=== PATIENT | male | born 1975 | race Caucasian/White ===

== ENCOUNTER 2024-12-05 15:41 | Inpatient (IN) | payer OTHER, SELFPAY ==
[2024-12-05] VITALS (13 sets, daily range): BP systolic 164–191; BP diastolic 93–110; BMI 29.4; BMI 28.5
[2024-12-05 10:11] LABS: % Basophils 0.6 % (0-2); % Eosinophils 19.8 % (0-6); % Immature Granulocytes 0.2 % (0-0.5); % Lymphocytes 10.8 % (20.5-51.1); % Monocytes 5.6 % (1.7-9.3); Absolute Basophils 0.1 10^3/uL (0-0.2); Absolute Eosinophils 1.8 10^3/uL (0-0.7); Absolute Monocytes 0.5 10^3/uL (0.1-0.6); Absolute Neutrophils 5.6 10^3/uL (1.4-6.5); Hemoglobin 9.7 g/dL (13.0-18.0); Mean Corp Hgb Conc. 32.3 g/dL (33.0-37.0); Mean Corpuscular Hgb 29.9 pg (27.0-31.0); Mean Corpuscular Volume 92.6 fL (80.0-94.0); Mean Platelet Volume 9.4 fL (7.4-10.4); Nucleated Red Blood Cells % 0 % (-); Platelet Count 309 10^3/uL (130-400); Red Blood Cell Count 3.24 10^6/uL (4.70-6.10); Red Cell Dist. Width 16.1 % (11.5-14.5); White Blood Cell Count 8.9 10^3/uL (4.8-10.8)
[2024-12-05 10:30] LABS: ALT (SGPT) 23 U/L (0-50); AST (SGOT) 26 U/L (17-59); Albumin 3.5 g/dl (3.5-5.0); Alkaline Phosphatase 85 U/L (38-126); Blood Urea Nitrogen 54 mg/dl (9-20); Calcium 8.7 mg/dl (8.4-10.2); Carbon Dioxide 28 mmol/L (22-30); Chloride 96 mmol/L (98-107); Glucose 121 mg/dl (70-99); Potassium 4.4 mmol/L (3.5-5.1); Sodium 139 mmol/L (135-145); Total Bilirubin 0.4 mg/dl (0.2-1.3); Total Protein 6.7 g/dl (6.3-8.2); eGFR 5.18
[2024-12-05 10:39] LABS: COVID-19 Antigen Negative (Negative)
[2024-12-05 11:53] LABS: NT-proBNP > 27000 pg/ml; Troponin I 0.036 ng/ml
--- NOTE | 2024-12-05 13:50 | ED.GENMED ---
History of Present Illness
<Anabella Love MD - Last Filed: 12/05/24 13:52>
General
Chief Complaint: Breathing Problem
Time Seen by Provider: 12/05/24 10:44
<Tahir Lizarraga PA-C - Last Filed: 12/05/24 14:00>
General
Source: patient
Exam Limitations: none
History of Present Illness
History of Present Illness:
49-year-old male Tuesday dialysis patient presents with increased shortness of breath worsening over the past 2 weeks. He believes he has a history of heart failure. Is on Bumex. He stopped taking this 2 days ago. The shortness of breath
preceded this. He notes swelling in his legs. He is due for his next dialysis session tomorrow. He has a history of IgA nephropathy requiring renal transplant. He states to me that his renal transplant failed last year. He denies chest pain.
No fevers. No significant cough. No other complaints at this time
Past History
<Anabella Love MD - Last Filed: 12/05/24 13:52>
Past History
ED Past Medical History: Asthma, GERD and Other (G-6PD def )
ED Past Surgical History: Orthopedic ('Drill procedure' left UE. Left achilles surgery) and Other ( Right Kidney transplant)
Social History
Tobacco: Non-smoker
Alcohol: Occasional
Drug: None
Personal: Single
Living: alone
Phy Exam
<Tahir Lizarraga PA-C - Last Filed: 12/05/24 14:00>
Physical Exam
Physical Exam:
General: Well-developed male with slight increased work of breathing HEENT: Normocephalic atraumatic neck is supple
Heart: Regular rate and rhythm
Lungs: Clear
Abdomen is soft nontender nondistended
Extremities: Pitting edema bilateral lower extremity
Skin: Warm no rash
Scores
<Tahir Lizarraga PA-C - Last Filed: 12/05/24 14:00>
Heart Failure Risk
Heart Failure Risk Score: Not Applicable
Course
<Anabella Love MD - Last Filed: 12/05/24 13:52>
Orders/Labs/Results
Orders:
Orders
12/05/24 09:47
Electrocardiogram (*1) Urgent
Reason for Study: Shortness of Breath
EKG- Treatment ONCE
12/05/24 09:57
Comprehensive Metabolic Panel Urgent
12/05/24 09:58
COVID-19 Antigen Urgent
Source: Nasal Swab
Complete Blood Count/With Diff Urgent
Influenza A+B Rapid Molecular Urgent
SHELDON Source: Nasal Swab
Specimen Description:
12/05/24 10:55
CR Chest - 2 Views Urgent
Comment:
Reason For Exam: sob
12/05/24 11:10
NT-proBNP Urgent
Troponin I Urgent
Abnormal Lab Results
12/05/24 12/05/24 12/05/24
09:57 09:58 11:10
RBC 3.24 L 10^6/uL
(4.70-6.10)
Hgb 9.7 L g/dL
(13.0-18.0)
Hct 30.0 L %
(39.0-52.0)
MCHC 32.3 L g/dL
(33.0-37.0)
RDW 16.1 H %
(11.5-14.5)
Absolute Lymphs (auto) 1.0 L 10^3/uL
(1.2-3.4)
Absolute Eos (auto) 1.8 H 10^3/uL
(0-0.7)
Lymphocytes % 10.8 L %
(20.5-51.1)
Eosinophils % 19.8 H %
(0-6)
Chloride 96 L mmol/L
(98-107)
BUN 54 H mg/dl
(9-20)
Creatinine 10.9 H* mg/dL
(0.7-1.3)
Glucose 121 H mg/dl
(70-99)
Troponin I 0.036 H* ng/ml
12/05/24 09:58
12/05/24 09:57
Vital Signs
Initial and Last Documented VS:
Initial Vital Signs
Temp Pulse Resp BP Pulse Ox
97.9 F 78 18 177/110 93
12/05/24 09:44 12/05/24 09:44 12/05/24 09:44 12/05/24 09:44 12/05/24 09:44
Last Documented Vital Signs
Temp Pulse Resp BP Pulse Ox
97.9 F 73 23 179/107 94
12/05/24 09:44 12/05/24 13:45 12/05/24 13:45 12/05/24 13:00 12/05/24 13:45
Travonlt;Tahir Lizararga PA-C - Last Filed: 12/05/24 14:00>
Orders/Labs/Results
Orders:
Orders
12/05/24 09:47
Electrocardiogram (*1) Urgent
Reason for Study: Shortness of Breath
EKG- Treatment ONCE
12/05/24 09:57
Comprehensive Metabolic Panel Urgent
12/05/24 09:58
COVID-19 Antigen Urgent
Source: Nasal Swab
Complete Blood Count/With Diff Urgent
Influenza A+B Rapid Molecular Urgent
HSELDON Source: Nasal Swab
Specimen Description:
12/05/24 10:55
CR Chest - 2 Views Urgent
Comment:
Reason For Exam: sob
12/05/24 11:10
NT-proBNP Urgent
Troponin I Urgent
Abnormal Lab Results
12/05/24 12/05/24 12/05/24
09:57 09:58 11:10
RBC 3.24 L 10^6/uL
(4.70-6.10)
Hgb 9.7 L g/dL
(13.0-18.0)
Hct 30.0 L %
(39.0-52.0)
MCHC 32.3 L g/dL
(33.0-37.0)
RDW 16.1 H %
(11.5-14.5)
Absolute Lymphs (auto) 1.0 L 10^3/uL
(1.2-3.4)
Absolute Eos (auto) 1.8 H 10^3/uL
(0-0.7)
Lymphocytes % 10.8 L %
(20.5-51.1)
Eosinophils % 19.8 H %
(0-6)
Chloride 96 L mmol/L
(98-107)
BUN 54 H mg/dl
(9-20)
Creatinine 10.9 H* mg/dL
(0.7-1.3)
Glucose 121 H mg/dl
(70-99)
Troponin I 0.036 H* ng/ml
12/05/24 09:58
12/05/24 09:57
Vital Signs
Initial and Last Documented VS:
Initial Vital Signs
Temp Pulse Resp BP Pulse Ox
97.9 F 78 18 177/110 93
12/05/24 09:44 12/05/24 09:44 12/05/24 09:44 12/05/24 09:44 12/05/24 09:44
Last Documented Vital Signs
Temp Pulse Resp BP Pulse Ox
97.9 F 73 23 179/107 94
12/05/24 09:44 12/05/24 13:45 12/05/24 13:45 12/05/24 13:00 12/05/24 13:45
<Tahir Lizarraga PA-C - Last Filed: 12/05/24 14:00>
MDM/Problems Addressed
Differential Diagnosis Includes:
Shortness of breath. Consider volume overload versus CHF versus pneumonia.
Patient does look volume overloaded. BNP greater than 27,000. Chest x-ray shows new cardiomegaly. Patient did drop to 88% while here and is requiring 2 L of oxygen. Suspect possible underlying CHF. Discussed with emergency room attending who
saw the patient as well. Will admit to hospital
<Tahir Lizarraga PA-C - Last Filed: 12/05/24 14:00>
*Critical Care Note
Total Time (30-74mins, 75-104mins- exclusive of procedures): Not Applicable
ED Attending Note
<Anabella Love MD - Last Filed: 12/05/24 13:52>
ED Attending Note
Patient seen and examined by attending physician: Yes
I performed the substantive portion of visit, reviewed & personally made and approve the management plan that is documented in note by myself or GRANT.: Yes
ED Attending Note:
Patient appears nontoxic but is tachypneic at rest. Patient reports his shortness of breath is much different than baseline. He denies chest pain, including pleuritic chest pain and cough. Given patient's comorbidities and breathing feeling so
different than his baseline, I feel it is important for him to be admitted for at least a cardiac workup and echo
-
Portions of this chart may have been created with voice recognition software.� Occasional wrong word or��sound alike� substitutions may have occurred due to the inherent limitations of voice recognition software.
Discharge Plan
Departure
Patient Disposition: Admit
Date of Disposition: 12/05/24
Time of Disposition: 13:59
Presentation/result/management discussed w/ accepting MD/DO: Hospitalist
Discharge Problem:
Hypoxia
Prescriptions:
No Action
prednisone 5 mg Tablet
5 mg PO DAILY
famotidine [Pepcid] 20 mg Tablet
20 mg PO DAILY
nifedipine [Nifedical XL] 60 mg Tablet Extended Release 24hr
60 mg PO BID
tamsulosin [Flomax] 0.4 mg Capsule
0.8 mg PO HS
telmisartan 80 mg Tablet
80 mg PO DAILY
bumetanide [Bumex] 1 mg Tablet
1 mg PO MOTUWEFRSA
cinacalcet 90 mg Tablet
90 mg PO MOWEFR
sevelamer carbonate 800 mg Tablet
1,600 mg PO TID
Envarsus XR 1 mg Tablet Extended Release 24 Hr
6 mg PO DAILY
Repatha SureClick 140 mg/mL Pen Injector
140 mg SC MONTHLY
Referrals:
Tena Boyer CRNP [Family Provider] -
Interventions
Interventions:
*Risk Screen - Suicide Last Done: 12/05/24 09:44
*General Assessment Last Done: 12/05/24 09:44
*Neglect/Abuse Screening Last Done: 12/05/24 09:44
ED- Fall Risk Assessment Last Done: 12/05/24 10:50
*ED COVID-19 Vaccine History Last Done: 12/05/24 09:44
ED- Cardiac Assessment Last Done: 12/05/24 10:50
ED- Pulmonary Assessment Last Done: 12/05/24 10:50
Discharge Date and Time
Print Language: TURKISH
--- NOTE | 2024-12-05 14:03 | HPS.HSE ---
Family Physician
-
Family Physician: Tena Boyer
Chief Complaint
-
Short of breath
History of Present Illness
49-year-old male Tuesday dialysis, type 2 diabetes, anemia, neurogenic bladder, hyperlipidemia, heart murmur, neuropathy patient presents with increased shortness of breath worsening over the past 2 weeks. Patient stated short of breath
worse with exertion patient denied orthopnea.patient complained of worsening lower extremities edema. Patient stated runny nose, congestion, cough. Patient denied headache, dizzy, syncope patient denied fever, chills, chest pain.patient denied
abdominal pain, nausea, vomiting or diarrhea. Patient denied dysuria hematuria. Patient stated he did not take Bumex for past few days. He was waking up at night with dry mouth and lips.
He was noted to have elevated BNP, chest x-ray with mild cardiomegaly. Patient received a dose of Bumex in ER. Admitting for further management
Medical History
Past Medical History
Past Medical History: Reports Other
Additional Past Medical History:
Renal transplant recipient
End-stage renal disease
Type 2 diabetes
Anemia
Neurogenic bladder
Hyperlipidemia
Heart murmur
IgG4 related disease
Polyneuropathy
Asthma
Past Surgical History: Reports Other
Additional Past Surgical History:
Kidney transplant
Social History
Tobacco: Non-smoker
Alcohol: Occasional
Drug: None
Personal: Single
Family History
Family History: Not pertinent
Allergies / Home Medications
Allergies reflects when Allergies were last updated in [facility].
Home Medications with original date entered in [facility]
Allergy/Medication List:
Allergies
Allergy/AdvReac Type Severity Reaction Status Date / Time
dapsone Allergy Hives Verified 12/05/24 09:47
sulfamethoxazole Allergy Hives Verified 12/05/24 09:47
[From Bactrim]
trimethoprim [From Bactrim] Allergy Hives Verified 12/05/24 09:47
adhesive and possible latex Allergy Rash Uncoded 12/05/24 09:47
Home Medications
bumetanide 1 mg tablet 1 mg PO MOTUWEFRSA 12/05/24
cinacalcet 90 mg tablet 90 mg PO MOWEFR 12/05/24
evolocumab 140 mg/mL subcutaneous pen injector (Repatha SureClick) 140 mg SC MONTHLY 12/05/24
famotidine 20 mg tablet (Pepcid) 20 mg PO DAILY 12/05/24
nifedipine 60 mg tablet,extended release 24 hr 60 mg PO BID 12/05/24
prednisone 5 mg tablet 5 mg PO DAILY 12/05/24
sevelamer carbonate 800 mg tablet 1,600 mg PO TID 12/05/24
tacrolimus 1 mg tablet,extended release 24 hr (Envarsus XR) 6 mg PO DAILY 12/05/24
tamsulosin 0.4 mg capsule (Flomax) 0.8 mg PO HS 12/05/24
telmisartan 80 mg tablet 80 mg PO DAILY 12/05/24
Review of Systems
-
Constitutional: Reports No Symptoms
EENT: Reports No Symptoms
Respiratory: Reports Cough and Trouble Breathing
Cardiac: Reports No Symptoms
Abdomen/GI: Reports No Symptoms
: Reports No Symptoms
Musculoskeletal: Reports No Symptoms
Skin: Reports No Symptoms
Neurological: Reports No Symptoms
Endocrine: Reports No Symptoms
Hematologic/Lymphatic: Reports No Symptoms
Psych: Reports No Symptoms
Physical Exam
Vital Signs
Vital Signs
Temp Pulse Resp BP Pulse Ox
97.9 F 73 23 179/107 94
12/05/24 09:44 12/05/24 13:45 12/05/24 13:45 12/05/24 13:00 12/05/24 13:45
Physical Exam
General: Well Developed, Well Nourished and No Apparent Distress
HEENT: NormoCephalic, Moist mucous membranes and Atraumatic
Respiratory: Clear
Cardiac: S1/S2 and Regular Rhythm; No Murmur or Rub
GI: Soft, Non Tender, Non Distended and Normal Bowel Sounds; No Organomegaly
Rectal: Deferred by Provider
Musculoskeletal: No Clubbing, No Cyanosis and Other (Bilateral lower extremities)
Skin: No Rash
Neuro: AO x 3 and Nonfocal/grossly intact
Psych: Calm
Laboratory Results
-
12/05/24 09:58
12/05/24 09:57
Laboratory Results
Total Bilirubin 0.4 mg/dl (0.2-1.3) 12/05/24 09:57
AST 26 U/L (17-59) 12/05/24 09:57
ALT 23 U/L (0-50) 12/05/24 09:57
Alkaline Phosphatase 85 U/L (38-126) 12/05/24 09:57
Troponin I 0.036 ng/ml H* 12/05/24 11:10
Data Reviewed
-
Lab Data: Labs Reviewed by me
Impression/Plan
-
# Short of breath/acute hypoxic respiratory failure likely CHF exacerbation
-Patient requiring 2 L of oxygen
-Continue supplemental oxygen to keep sat greater than 92, wean as tolerated
-BNP greater than 27 000
-Influenza AMB, COVID-negative
-Chest x-ray with impression of mild cardiomegaly.
-IV Bumex continued
-obtain ECHO
-cardiology consulted
# End-stage renal dialysis
#renal transplant recipient
-Patient is on dialysis Tuesday and
-Nephrology consulted
-patient straight cath three times a week.
# Anemia of chronic disease
-Hemoglobin stable at 9.7
-No active bleeding
-Continue to monitor
# Elevated Trop likely demand ischemia secondary to CHF/end-stage renal disease
-Patient denied any chest pain
-EKG normal sinus rhythm, nonspecific ST-T wave normality, prolonged QT
-continue to trend trop
#IGA nephropathy requiring transplant, failed last year
-continue cinacalcet, prednisone, sevelamer, Tacrolimus continued
#essential HTN
nifedipine , telmisartan continued
#GERD
-PPI continued
#DVT prophylaxis
-heparin sq
#CODE status
-full code
--- NOTE | 2024-12-05 14:39 | W.PN.UPDATE ---
Update Note
Progress Note Update
This is an addendum to the H&P written by Yolanda Waite on 12/05/2024. Patient seen examined independently with [employer].
49-year-old male past medical history of ESRD on hemodialysis on , Tuesday, IgA nephropathy requiring renal transplant which failed last year followed at [place], [facility], presenting with shortness of breath worsening over the past 2 weeks.
Stopped taking Bumex 2 days ago because he ran out of medication. Patient makes urine and straight catheterization 3 times a day.
Chest x-ray shows mild cardiomegaly.
Labs show cardiac BNP greater than 27,000.
Presentation consistent with volume overload from ESRD/CHF exacerbation secondary to Bumex noncompliance. 1 mg Bumex IV daily. Check echocardiogram. Cardiology consulted. Nephrology consulted. Bladder scan protocol.
Patient wants to establish care with [facility] physicians.
[2024-12-05] MEDS: BUMEX 1 MG IV (14:43)
--- NOTE | 2024-12-05 15:18 | W.CON.NEPH ---
Consultation
-
Date/Time Consultation Requested: 12/05/2024 2 PM
Date/Time Consultation Performed: 12/05/2024 3:20 PM
Requesting Provider: Dr. Park
Performing Provider: Dr. Hubbard
Reason for Consultation: ESRD
Medical History
-
Chief Complaint: Shortness of breath
History of Present Illness:
This is a 49-year-old gentleman who has end-stage renal disease on hemodialysis. Last year after failed renal transplant from [id number]. He is on nocturnal dialysis Tuesday nights and nights at [facility]. He states
that he has had no issues with dialysis in the past. He says in the last 2 weeks he has had progressive shortness of breath. He also developed upper respiratory symptoms as well. He has not had his Bumex in the last few days. He does have
urinary retention in the last 3 months time for which now straight catheterizes himself 3 times a day. His last straight catheterization was 3 PM on Tuesday afternoon, 24 hours ago. He does not recall any history of heart disease or heart
failure. He says that he typically does respond to Bumex but required straight catheterization to realize the urine output. His blood pressure has been controlled with a multidrug regimen though he admits that he has been taking as high as 120 mg
twice daily of nifedipine.
Past Medical History
ESRD
Left upper extremity AV fistula, DRIL, stent
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
Hypertension
Urinary retention/neurogenic bladder
Asthma
Achilles tendon repair
Social History
Tobacco: Non-Smoker
Alcohol: Occasional
Family History
Family History: Not Pertinent
Allergies / Home Medications
Allergy/AdvReac Type Severity Reaction Status Date / Time
dapsone Allergy Hives Verified 12/05/24 09:47
sulfamethoxazole Allergy Hives Verified 12/05/24 09:47
[From Bactrim]
trimethoprim [From Bactrim] Allergy Hives Verified 12/05/24 09:47
adhesive and possible latex Allergy Rash Uncoded 12/05/24 09:47
�Medication �Instructions �Recorded �Confirmed �Type
bumetanide 1 mg tablet 1 mg PO MOTUWEFRSA 12/05/24 12/05/24 History
cinacalcet 90 mg tablet 90 mg PO MOWEFR 12/05/24 12/05/24 History
evolocumab 140 mg/mL subcutaneous 140 mg SC MONTHLY 12/05/24 12/05/24 History
pen injector (Repatha SureClick)
famotidine 20 mg tablet (Pepcid) 20 mg PO DAILY 12/05/24 12/05/24 History
nifedipine 60 mg tablet,extended 60 mg PO BID 12/05/24 12/05/24 History
release 24 hr
prednisone 5 mg tablet 5 mg PO DAILY 12/05/24 12/05/24 History
sevelamer carbonate 800 mg tablet 1,600 mg PO TID 12/05/24 12/05/24 History
tacrolimus 1 mg tablet,extended 6 mg PO DAILY 12/05/24 12/05/24 History
release 24 hr (Envarsus XR)
tamsulosin 0.4 mg capsule (Flomax) 0.8 mg PO HS 12/05/24 12/05/24 History
telmisartan 80 mg tablet 80 mg PO DAILY 12/05/24 12/05/24 History
Review of Systems
-
Shortness of breath. No chest pain. Sinus complaints
All other systems: Negative unless noted
Physical Exam
Vital Signs
Vital Signs
Temp Pulse Resp BP Pulse Ox
97.9 F 74 21 189/98 96
12/05/24 09:44 12/05/24 14:45 12/05/24 14:45 12/05/24 14:00 12/05/24 14:45
Lab Results
WBC 8.9 10^3/uL (4.8-10.8) 12/05/24 09:58
RBC 3.24 10^6/uL (4.70-6.10) L 12/05/24 09:58
Hgb 9.7 g/dL (13.0-18.0) L 12/05/24 09:58
Hct 30.0 % (39.0-52.0) L 12/05/24 09:58
Plt Count 309 10^3/uL (130-400) 12/05/24 09:58
Sodium 139 mmol/L (135-145) 12/05/24 09:57
Potassium 4.4 mmol/L (3.5-5.1) 12/05/24 09:57
Chloride 96 mmol/L (98-107) L 12/05/24 09:57
Carbon Dioxide 28 mmol/L (22-30) 12/05/24 09:57
BUN 54 mg/dl (9-20) H 12/05/24 09:57
Creatinine 10.9 mg/dL (0.7-1.3) H* 12/05/24 09:57
eGFR 5.18 12/05/24 09:57
Glucose 121 mg/dl (70-99) H 12/05/24 09:57
Calcium 8.7 mg/dl (8.4-10.2) 12/05/24 09:57
Rob-S-Gevqolzrjur Pept > 69078 pg/ml 12/05/24 11:10
Albumin 3.5 g/dl (3.5-5.0) 12/05/24 09:57
Physical Exam
Patient is awake alert oriented and in no distress. Mood and affect were pleasant, insight and judgment were good. Pupils are equal round and reactive to light, extraocular movements are intact, sclera were anicteric. Hearing was normal, ears and
nose are intact. Oropharynx was clear. Neck was supple with trachea midline and no thyromegaly. Heart was regular rate and rhythm without rubs. Lower extremities with trace edema. Lungs were clear to auscultation bilaterally and with normal
excursion. Abdomen was soft, nontender, with normal active bowel sounds, and no hepatosplenomegaly. Skin was without rash and with normal turgor. Left upper extremity AV fistula was with good thrill and bruit, large pseudoaneurysm
Data Reviewed
-
Radiology: Image Personally Visualized and interpreted (Chest x-ray on 12/05/2024 by my reading shows no acute disease)
Medical Tests (Nuc Med, Echo etc): Image Personally Visualized and interpreted (EKG on 12/05/2024 by my reading shows normal sinus rhythm prolonged QT)
Labs: Labs Reviewed by me
Assessment/Plan
-
Assessment
Acute shortness of breath
ESRD on nocturnal dialysis Sundays
Anemia
IgG4 related disease
Failed kidney transplant
Acute heart failure
Hypertension
Urinary retention
Plan
Additional Bumex later today
straight catheterize 3 times daily
Plan for dialysis tomorrow
Cardiac evaluation, echocardiogram
Continue tacrolimus and prednisone, low-dose
--- NOTE | 2024-12-05 16:03 | CON.CAR ---
Addendum entered and electronically signed by Rafael Salvador MD 12/05/24 16:55:
-Start hydralazine 25 mg TID for management of uncontrolled hypertension.
Addendum entered and electronically signed by Rafael Salvador MD 12/05/24 16:54:
Patient seen and examined in collaboration with [employer]; agree with below.
-49-year-old male with failed prior renal transplant (at [place])/ESRD (on dialysis), urinary retention with self catheterizations 3 times daily), hypertension, dyslipidemia, and asthma admitted with shortness of breath.
-The patient ran out of Bumex a few days ago, but did not notify his Bung Driver.
-The patient does still make urine.
-Recommend IV Bumex as dosed per Nephrology.
-Will obtain an echocardiogram tomorrow (murmur on examination).
Original Note:
Consultation
Consultation Request
Date/Time Consultation Requested: 12/05/24 1436
Date/Time Consultation Performed: 12/05/24 1600
Requesting Provider: Yolanda Waite NP
Performing Provider: Yane POMPA for Dr. Bermeo
Reason for Consultation: CHF
Medical History
-
Chief Complaint: SOB
History of Present Illness:
49 y/o male with ESRD on HD (twice weekly), previous renal transplant that failed, hypertension, urinary retention (self cath 3 x day), asthma, dyslipidemia, and heart murmur (reason unknown) who is here for evaluation of SOB x 2 weeks, worse with
exertion. He did run out of Bumex a few days ago and has mild BLE LE edema. He is in no distress at the time of my assessment.
Past Medical History
Past Medical History: Asthma, HTN, Hypercholesterolemia, Renal Failure and Other (as above)
Social History
Tobacco: Non-Smoker
Family History
Family History: Reviewed & Not Pertinent
Allergies / Home Medications
Allergy/AdvReac Type Severity Reaction Status Date / Time
dapsone Allergy Hives Verified 12/05/24 09:47
sulfamethoxazole Allergy Hives Verified 12/05/24 09:47
[From Bactrim]
trimethoprim [From Bactrim] Allergy Hives Verified 12/05/24 09:47
adhesive and possible latex Allergy Rash Uncoded 12/05/24 09:47
�Medication �Instructions �Recorded �Confirmed �Type
bumetanide 1 mg tablet 1 mg PO MOTUWEFRSA 12/05/24 12/05/24 History
cinacalcet 90 mg tablet 90 mg PO MOWEFR 12/05/24 12/05/24 History
evolocumab 140 mg/mL subcutaneous 140 mg SC MONTHLY 12/05/24 12/05/24 History
pen injector (Repatha SureClick)
famotidine 20 mg tablet (Pepcid) 20 mg PO DAILY 12/05/24 12/05/24 History
nifedipine 60 mg tablet,extended 60 mg PO BID 12/05/24 12/05/24 History
release 24 hr
prednisone 5 mg tablet 5 mg PO DAILY 12/05/24 12/05/24 History
sevelamer carbonate 800 mg tablet 1,600 mg PO TID 12/05/24 12/05/24 History
tacrolimus 1 mg tablet,extended 6 mg PO DAILY 12/05/24 12/05/24 History
release 24 hr (Envarsus XR)
tamsulosin 0.4 mg capsule (Flomax) 0.8 mg PO HS 12/05/24 12/05/24 History
telmisartan 80 mg tablet 80 mg PO DAILY 12/05/24 12/05/24 History
Review of Systems
-
History Source: Patient
All other systems: Negative unless noted
Respiratory: Trouble Breathing
Musculoskeletal: Edema
Physical Exam
Vital Signs
Temp Pulse Resp BP Pulse Ox
97.9 F 76 19 167/107 96
12/05/24 09:44 12/05/24 15:15 12/05/24 15:15 12/05/24 15:00 12/05/24 15:45
Lab Results
12/05/24 09:58
12/05/24 09:57
Troponin I 0.036 ng/ml H* 12/05/24 11:10
Krg-E-Lukqzvofnru Pept > 70318 pg/ml 12/05/24 11:10
Physical Exam
General: Well Developed, Well Nourished and No Apparent Distress
HEENT: Normocephalic and Anicteric
Respiratory: Crackles (b/l bases)
Cardiac: Murmur (II/ systolic murmur)
Musculoskeletal: Edema (mild BLE edema)
Skin: Warm and Dry
Neuro: AO x 3
Psych: Calm
Impression / Plan
-
SOB, secondary to acute HF (type unknown), in setting of ESRD:
-gets Bumex as OP and has been off of it recently. Now ordered IV bumex, which requires intensive monitoring.
-To get HD tomorrow
-check echo, murmur noted
ESRD:
-hx renal transplant
-for HD tomorrow
-management per neprhology
HTN:
-not controlled
-continue CCB
-need to add alternate agent
Abnormal troponin:
-acute, non-ischemic myocardial injury in setting of abnormal renal function and volume overloaded
Data Reviewed
-
EKG: Tracing Personally Visualized and interpreted (NSR [address] and T abnormality)
Radiology: Report Reviewed by me (CXR: Mild cardiomegaly. New)
Medical Tests (Nuc Med, Echo etc): Other (echo is ordered)
Labs: Labs Reviewed by me
--- NOTE | 2024-12-05 17:48 | EDRN ---
Pt self-caths. Went to bathroom to use straight cath and did not measure output.
[2024-12-05] MEDS: BUMEX 2 MG IV (18:34)
[2024-12-05] MEDS: COREG 6.25 MG PO (19:56)
[2024-12-05] MEDS: HEPARIN 5000 UNITS SC (19:56)
[2024-12-05] MEDS: PROCARDIA XL (EXTENDED RELEASE) 60 MG PO (19:56)
[2024-12-05] MEDS: RENVELA PO (19:57)
[2024-12-05] MEDS: APRESOLINE 25 MG PO (22:23)
[2024-12-05] MEDS: FLOMAX 0.8 MG PO (22:23)
[2024-12-06 02:41] VITALS: BP 145/80
[2024-12-06 06:00] VITALS: BMI 28.7
[2024-12-06 06:15] LABS: Hematocrit 27.8 % (39.0-52.0); Hemoglobin 9.1 g/dL (13.0-18.0); Mean Corp Hgb Conc. 32.7 g/dL (33.0-37.0); Mean Corpuscular Hgb 30.1 pg (27.0-31.0); Mean Corpuscular Volume 92.1 fL (80.0-94.0); Mean Platelet Volume 9.5 fL (7.4-10.4); Platelet Count 307 10^3/uL (130-400); Red Blood Cell Count 3.02 10^6/uL (4.70-6.10); Red Cell Dist. Width 16.3 % (11.5-14.5); White Blood Cell Count 8.6 10^3/uL (4.8-10.8)
[2024-12-06 06:34] LABS: Troponin I 0.034 ng/ml
[2024-12-06 06:45] LABS: Blood Urea Nitrogen 61 mg/dl (9-20); Calcium 8.4 mg/dl (8.4-10.2); Carbon Dioxide 24 mmol/L (22-30); Chloride 97 mmol/L (98-107); Estimated Creatinine Clearance 7 ml/min; Glucose 87 mg/dl (70-99); HDL Cholesterol 32 mg/dl; LDL Cholesterol, Calculated 43 mg/dl; Magnesium 2.2 mg/dl (1.6-2.3); Sodium 137 mmol/L (135-145); Total Cholesterol 98 mg/dl (50-199); Triglyceride 116 mg/dl (10-149); Very Low Density Lipoprotein 23 mg/dl (0-30); eGFR 4.24
[2024-12-06 07:26] VITALS: BP 162/96
[2024-12-06] MEDS: APRESOLINE 25 MG PO ×3 (08:03→22:34)
[2024-12-06] MEDS: COREG 6.25 MG PO ×2 (08:03→19:44)
[2024-12-06] MEDS: DELTASONE 5 MG PO (08:03)
[2024-12-06] MEDS: PROCARDIA XL (EXTENDED RELEASE) 60 MG PO ×2 (08:03→19:44)
[2024-12-06] MEDS: RENVELA 1600 MG PO ×3 (08:03→17:29)
[2024-12-06] MEDS: COZAAR 100 MG PO (08:04)
[2024-12-06] MEDS: BUMEX 1 MG IV (08:04)
[2024-12-06] MEDS: HEPARIN 5000 UNITS SC ×2 (08:04→19:44)
[2024-12-06] MEDS: PEPCID 20 MG PO (08:04)
[2024-12-06 08:11] LABS: TSH Reflex To Free T4 3.32 uIU/ml (0.47-4.68)
[2024-12-06] MEDS: ENVARSUS XR 6 MG PO (09:10)
--- NOTE | 2024-12-06 09:54 | W.PN.CD ---
Today's Communication / Plan
-
HD today
HD and diuretic per nephrology
monitor BP a nd resp status post HD
Impression / Plan
-
SOB, secondary to acute HF (type unknown), in setting of ESRD:
-gets Bumex as OP and has been off of it recently. Now ordered IV bumex, which requires intensive monitoring.
-To get HD tomorrow
-check echo, murmur noted
ESRD:
-hx renal transplant
-for HD tomorrow
-management per neprhology
HTN:
-continue to monitor as addtionlaa volume removed. will likely have better control as he becomes euvolemic
- monitor after HD
Abnormal troponin:
-acute, non-ischemic myocardial injury in setting of abnormal renal function and volume overloaded
Physical Exam
Vital Signs/Labs
Vital Signs
Temp Pulse Resp BP Pulse Ox
98.0 F 74 18 162/96 96
12/06/24 07:26 12/06/24 08:04 12/06/24 07:26 12/06/24 08:04 12/06/24 07:26
12/05/24 12/06/24 12/07/24
06:59 06:59 06:59
Actual Weight 95.98 kg
12/06/24 06:00
12/06/24 06:00
Magnesium 2.2 mg/dl (1.6-2.3) 12/06/24 05:57
Triglycerides 116 mg/dl (10-149) 12/06/24 05:57
LDL Cholesterol, Calc 43 mg/dl 12/06/24 05:57
VLDL Cholesterol, Calc 23 mg/dl (0-30) 12/06/24 05:57
HDL Cholesterol 32 mg/dl 12/06/24 05:57
12/05/24
11:10
Nqq-N-Dklhxbznbul Pept > [id number]
LAB Results
12/05/24 12/05/24 12/06/24
11:10 17:35 05:57
Troponin I 0.036 H* Cancelled 0.034
Physical Exam
Constitutional: No acute distress
Cardiovascular: Rhythm & rate is regular
Respiratory: Wheeze Absent and Rhonchi Absent
GI: Soft
Neuro/Psych: Alert
Data Reviewed
-
Date of Service: December 06, 2024
Medical Decision Making: Reviewed Test Results
Echo: Report Reviewed by me
Medical Tests (PFT, Pathology etc): Report Reviewed by me
Labs: Labs Reviewed by me
[2024-12-06 10:59] VITALS: BP 151/97
[2024-12-06 12:44] VITALS: BMI 28.7
[2024-12-06] MEDS: RETACRIT 4000 UNITS IV (13:29)
--- NOTE | 2024-12-06 14:04 | W.PN.NEPH.HD ---
Assessment
-
Seen on HD. still on suppO2. VSS, access ok
possible UF tomorrow based on O2 req
Progress Note - Hemodialysis
-
Date of Service: December 06, 2024
Duration: 4 hours
Potassium Bath: 2
Calcium Bath: 2.5
Opti-Dialyzer: 160
Ultrafiltration: Other (4kg)
Blood Flow: 400
Dialysate Flow: 600
Heparin: 0
EPO: 4000 units
--- NOTE | 2024-12-06 14:58 | W.PN.HOSP.TC ---
Today's Communication/Plan
-
See plan
Assessment / Plan
Assessment / Plan
Impression:
Presentation with acute shortness of breath
Acute hypoxic respiratory failure.
Acute CHF exacerbation unknown type.
Non-SD troponin elevation
Volume overload.
End-stage renal disease on nocturnal dialysis Sundays and .
Anemia of chronic disease.
Failed kidney transplant.
IgG4 nephropathy.
Hypertension.
Chronic urine retention requiring self-catheterization
Plan:
IV diuresis with Bumex
Volume management with HD
Echocardiogram
Continue current antihypertensive regimen including nifedipine, losartan with addition of Coreg and hydralazine
Reassess hemodynamics post HD and with IV diuresis
Continue preadmission immunosuppressive regimen with prednisone and tacrolimus
Continue self-catheterization
Continue Flomax
Anticipated Discharge: 24 - 48 hours
Subjective/Interval History
-
Date of Service: December 06, 2024
Objective Data
-
Labs:
Laboratory Results
12/06/24
05:57
WBC 8.6
Hgb 9.1 L
Hct 27.8 L
Plt Count 307
Sodium 137
Potassium 5.0
Chloride 97 L
Carbon Dioxide 24
BUN 61 H
Creatinine 12.9 H*
Glucose 87
Calcium 8.4
Vital Signs:
Vital Signs
Temp Pulse Resp BP Pulse Ox
97.7 F 72 17 151/97 97
12/06/24 10:59 12/06/24 10:59 12/06/24 10:59 12/06/24 10:59 12/06/24 10:59
I&O
12/05/24 12/06/24 12/07/24
06:59 06:59 06:59
Intake Total 480 / 480
Balance 480 / 480
Physical Exam
-
General: Well Developed and No Apparent Distress
HEENT: Normocephalic, Atraumatic and Moist Mucous Membranes
Respiratory: Clear to Auscultation
Cardiac: Regular Rhythm and S1/S2; Negative Murmur, Rub or Gallop
GI: Soft, Nontender, Nondistended and Normal Bowel Sounds; Negative Organomegaly
Rectal: Deferred by Provider
Musculoskeletal: No Clubbing, No Cyanosis and No Edema
Skin: Negative Rash
Neuro: Nonfocal/Grossly Intact
[2024-12-06 15:25] VITALS: BP 153/83
[2024-12-06 19:58] VITALS: BP 155/88
[2024-12-06 20:40] LABS: Hepatitis B Surface Antigen Negative (Negative)
[2024-12-06] MEDS: FLOMAX 0.8 MG PO (22:34)
[2024-12-06 22:38] VITALS: BP 144/85
[2024-12-07 03:21] VITALS: BP 140/73
[2024-12-07 06:00] VITALS: BMI 27.4
[2024-12-07] MEDS: ENVARSUS XR 6 MG PO (08:40)
[2024-12-07] MEDS: RENVELA 1600 MG PO ×3 (08:40→17:02)
[2024-12-07] MEDS: PROCARDIA XL (EXTENDED RELEASE) 60 MG PO (08:40)
[2024-12-07 08:41] VITALS: BP 165/103
[2024-12-07] MEDS: DELTASONE 5 MG PO (08:41)
[2024-12-07] MEDS: HEPARIN 5000 UNITS SC (08:41)
[2024-12-07] MEDS: BUMEX 1 MG IV (08:43)
[2024-12-07] MEDS: COZAAR 100 MG PO (08:45)
[2024-12-07] MEDS: COREG 6.25 MG PO (08:45)
[2024-12-07] MEDS: SENSIPAR 90 MG PO (08:48)
[2024-12-07] MEDS: APRESOLINE 25 MG PO (08:57)
--- NOTE | 2024-12-07 09:07 | W.PN.CD ---
Today's Communication / Plan
-
-Patient received hemodialysis yesterday; will receive 2 hours again today.
-Recommend Bumex 1 mg PO daily at home, but will ultimately defer to Nephrology for the recommendations.
-Will increase hydralazine to 50 mg TID.
-Continue current doses of carvedilol, nifedipine, and losartan.
-Outpatient follow-up with Cardiology.
Impression / Plan
-
Likely acute on chronic HFpEF:
-Patient has end-stage renal disease on dialysis and moderate to severe MR.
-Echocardiogram yesterday revealed an LVEF of 60-65% with moderate to severe mitral regurgitation and mild to moderate tricuspid regurgitation with an estimated PAP of 60-65 mmHg.
-Patient received hemodialysis yesterday; will receive 2 hours again today.
-Recommend Bumex 1 mg PO daily at home, but will ultimately defer to Nephrology for the recommendations.
ESRD:
-S/p renal transplant, failed.
-Patient received hemodialysis yesterday; will receive 2 hours again today.
-Continue management as per Nephrology.
HTN:
-Improved.
-Will increase hydralazine to 50 mg TID.
-Continue current doses of carvedilol, nifedipine, and losartan.
Abnormal troponin:
-Acute non-ischemic myocardial injury in setting of CKD and volume overloaded.
Physical Exam
Vital Signs/Labs
Vital Signs
Temp Pulse Resp BP Pulse Ox
97.6 F 75 12 165/103 96
12/07/24 08:41 12/07/24 08:43 12/07/24 08:41 12/07/24 08:43 12/07/24 08:41
12/06/24 12/07/24 12/08/24
06:59 06:59 06:59
Actual Weight 95.98 kg 91.716 kg
Magnesium 2.2 mg/dl (1.6-2.3) 12/06/24 05:57
Triglycerides 116 mg/dl (10-149) 12/06/24 05:57
LDL Cholesterol, Calc 43 mg/dl 12/06/24 05:57
VLDL Cholesterol, Calc 23 mg/dl (0-30) 12/06/24 05:57
HDL Cholesterol 32 mg/dl 12/06/24 05:57
12/05/24
11:10
Hqv-N-Behfuoedadh Pept > 01892
LAB Results
12/05/24 12/05/24 12/06/24
11:10 17:35 05:57
Troponin I 0.036 H* Cancelled 0.034
Physical Exam
Constitutional: No acute distress and Comfortable
EENT: Anicteric
Cardiovascular: Rhythm & rate is regular, Pedal edema present (Trace), Systolic murmur present (4/6) and S1S2 is normal
Respiratory: Respiratory effort normal and Lungs clear to auscul.
GI: Soft and Non tender
Neuro/Psych: AO x 3
Other: Skin (Warm, dry, intact)
Data Reviewed
-
Date of Service: December 07, 2024
EKG: Tracing Personally Visualized and interpreted (Telemetry: Sinus rhythm)
Labs: Labs Reviewed by me
[2024-12-07 10:57] VITALS: BP 150/98
--- NOTE | 2024-12-07 11:23 | PN.CDI ---
CDI
- -
CDI:
Physician Documentation Request
Admit Date: 12/05/24 15:41
Dear Doctor Dina,
Please review the following and provide your response in the progress notes.
Clinical Indicators:
Documentation in the record on 11/26/24 includes the diagnosis of respiratory failure. The patient's respiratory clinical indicators were the following:
Pt. admitted with SOB, acute CHF and ESRD.
12/05 ER: 'patient presents with increased shortness of breath worsening over the past 2 weeks....General:...slight increased work of breathing...Patient did drop to 88% while here and is requiring 2 L of oxygen..'
12/05 H&P: 'Respiratory: Reports Cough and Trouble Breathing
Physical Exam-General: Well Developed, Well Nourished and No Apparent Distress'
Pt on 2LNC on 12/05-12/06; then RA
Recognized standard criteria for respiratory failure includes:
(Source: [facility] Hospitalist Sep 2013)
ABGs (1 or more)
�PO2 <60 or RA SpO2 <91%
�PcO2 >50 and pH <7.35
�pO2 decrease or pcO2 increase by 10 mmHg from baseline if known Symptoms:
�Tachypnea, SOB, dyspnea
�Pallor or cyanosis
�Anxiety or restlessness
�Use of accessory muscles
�Retractions (grunting in newborns)
�Unable to speak in complete sentences
Supplemental O2 requirement of 40% (5LPM) or more Intubation is not required
Based on the above information and the recognized standard for respiratory failure could you please verify this diagnoses is still accurate and reflective of the patient�s condition to ensure quality of the medical record.
Please clarify in the Progress Notes:
Respiratory failure is/was present and is a clinical diagnosis based on (please include this additional support in the medical record)
After study respiratory failure has been ruled out
Other
Use of terms such as suspected, likely, concern for, or probable (associated with a specific diagnosis that is being evaluated, monitored, or treated as if it exists) are acceptable and can be coded in the inpatient setting, when documented at the
time of discharge.
Thank you,
Polly Hermosillo RN, BSN
CDI Specialist
[place] [employer]
Please use your independent medical judgment in providing your response.
[2024-12-07 14:53] LABS: Hematocrit 30.3 % (39.0-52.0); Hemoglobin 10.1 g/dL (13.0-18.0); Mean Corp Hgb Conc. 33.3 g/dL (33.0-37.0); Mean Corpuscular Hgb 30.6 pg (27.0-31.0); Mean Corpuscular Volume 91.8 fL (80.0-94.0); Mean Platelet Volume 9.9 fL (7.4-10.4); Platelet Count 339 10^3/uL (130-400); Red Cell Dist. Width 16.2 % (11.5-14.5); White Blood Cell Count 9.1 10^3/uL (4.8-10.8)
[2024-12-07 15:03] VITALS: BP 134/77
[2024-12-07 15:12] LABS: Blood Urea Nitrogen 45 mg/dl (9-20); Calcium 8.3 mg/dl (8.4-10.2); Carbon Dioxide 26 mmol/L (22-30); Chloride 95 mmol/L (98-107); Estimated Creatinine Clearance 10 ml/min; Glucose 210 mg/dl (70-99); Sodium 135 mmol/L (135-145); eGFR 6.11
[2024-12-07] MEDS: RETACRIT 3000 UNITS IV (15:17)
[2024-12-07] MEDS: HEPARIN 500 UNITS IV (15:19)
--- NOTE | 2024-12-07 16:03 | W.PN.NEPH.PH ---
Today's Communication / Plan
-
see plan
Assessment/Plan
-
Assessment
Acute shortness of breath
ESRD on nocturnal dialysis Sundays
Anemia
IgG4 related disease
Failed kidney transplant
Acute heart failure
Hypertension
Urinary retention
Plan
wt is down, not sure what is his DW
planned for 2hr HD today however Venous needle non function 25min into HD
clot removed, pt with recent h/o stent placement 1m ago
check AVF US
recommend to try HD tomorrow but refusing to stay
if AVF patent could d/c and f/u at his unit
he is aware that fistula could be problem and wants to take risk
echo fine
Continue tacrolimus and prednisone, low-dose
need strict renal diet
reviewed with pt about possible changing to 3x week HD
-
-
Date of Service: December 07, 2024
CC / HPI / ROS
-
Chief Complaint:
ESRD
History of Present Illness:
wt is down 4kg
Bp stable
k normal
Review of Systems:
no cp or sob
feels fine
Labs
-
Labs:
WBC 9.1 10^3/uL (4.8-10.8) 12/07/24 14:39
RBC 3.30 10^6/uL (4.70-6.10) L 12/07/24 14:39
Hgb 10.1 g/dL (13.0-18.0) L 12/07/24 14:39
Hct 30.3 % (39.0-52.0) L 12/07/24 14:39
Plt Count 339 10^3/uL (130-400) 12/07/24 14:39
Sodium 135 mmol/L (135-145) 12/07/24 14:39
Potassium 5.0 mmol/L (3.5-5.1) 12/07/24 14:39
Chloride 95 mmol/L (98-107) L 12/07/24 14:39
Carbon Dioxide 26 mmol/L (22-30) 12/07/24 14:39
BUN 45 mg/dl (9-20) H 12/07/24 14:39
Creatinine 9.5 mg/dL (0.7-1.3) H* 12/07/24 14:39
eGFR 6.11 12/07/24 14:39
Glucose 210 mg/dl (70-99) H 12/07/24 14:39
Calcium 8.3 mg/dl (8.4-10.2) L 12/07/24 14:39
Cna-D-Yokjhnkihfv Pept > 40722 pg/ml 12/05/24 11:10
Albumin 3.5 g/dl (3.5-5.0) 12/05/24 09:57
Physical Exam
-
Vital Signs:
Vital Signs
Temp Pulse Resp BP Pulse Ox
98.3 F 75 19 134/77 92
12/07/24 10:57 12/07/24 15:03 12/07/24 10:57 12/07/24 15:03 12/07/24 10:57
Cardiovascular:: Regular rate and rhythm
Respiratory:: Bilateral: CTA
Lung Excursion:: Normal
Abdomen:: Nontender and Soft
Extremity Edema:: None: Bilateral:
Giron Catheter: No
[2024-12-07] MEDS: APRESOLINE 50 MG PO (17:02)
--- NOTE | 2024-12-07 17:15 | W.PN.HOSP.TC ---
Today's Communication/Plan
-
HDP
Evaluation of the left upper extremity fistula thrombosis
Assessment / Plan
Assessment / Plan
Impression:
Presentation with acute shortness of breath
Acute hypoxic respiratory failure.
Acute CHF exacerbation unknown type.
Non-HI troponin elevation
Volume overload.
End-stage renal disease on nocturnal dialysis Sundays and .
Anemia of chronic disease.
Failed kidney transplant.
IgG4 nephropathy.
Hypertension.
Chronic urine retention requiring self-catheterization
Plan:
Echo: LV ejection fraction 60-65% with no regional wall motion abnormalities. No significant valvular abnormalities. Estimated pulmonary artery pressure 60-65 mmHg
IV diuresis with Bumex
Volume management with HD
Left arm AV fistula thrombosis being evaluated with ultrasound
Continue current antihypertensive regimen including nifedipine, losartan with addition of Coreg and hydralazine
Reassess hemodynamics post HD and with IV diuresis
Continue preadmission immunosuppressive regimen with prednisone and tacrolimus
Continue self-catheterization
Continue Flomax
Anticipated Discharge: 24 - 48 hours
Subjective/Interval History
-
Date of Service: December 07, 2024
Objective Data
-
Labs:
Laboratory Results
12/07/24
14:39
WBC 9.1
Hgb 10.1 L
Hct 30.3 L
Plt Count 339
Sodium 135
Potassium 5.0
Chloride 95 L
Carbon Dioxide 26
BUN 45 H
Creatinine 9.5 H*
Glucose 210 H
Calcium 8.3 L
Vital Signs:
Vital Signs
Temp Pulse Resp BP Pulse Ox
98.3 F 73 19 155/101 92
12/07/24 10:57 12/07/24 17:02 12/07/24 10:57 12/07/24 17:02 01/31/25 10:57
I&O
12/06/24 12/07/24 12/08/24
06:59 06:59 06:59
Intake Total 480 / 480 840 / 840 420 / 420
Balance 480 / 480 840 / 840 420 / 420
Physical Exam
-
General: Well Developed and No Apparent Distress
HEENT: Normocephalic, Atraumatic and Moist Mucous Membranes
Respiratory: Clear to Auscultation
Cardiac: Regular Rhythm and S1/S2; Negative Murmur, Rub or Gallop
GI: Soft, Nontender, Nondistended and Normal Bowel Sounds; Negative Organomegaly
Rectal: Deferred by Provider
Musculoskeletal: No Clubbing, No Cyanosis and No Edema
Skin: Negative Rash
Neuro: Nonfocal/Grossly Intact
--- NOTE | 2024-12-07 18:36 | W.DS.TRANS ---
DC Summary - Insurance Sales Assistant
-
Discharge Instructions:
Sleep Apnea Risk High
Discharge Diagnosis/Procedures CHF
ESRD
Volume overload
Diet Low Sodium
Instructions: *PCP/Other Psychologist Heart Failure Instructions
Stand-Alone Forms:
Changes to Home Medications: Yes
Discharge Medications:
DC Medications w/original date entered in [employer]
cinacalcet 90 mg tablet 90 mg PO MOWEFR Kidney Disease 12/05/24
evolocumab 140 mg/mL subcutaneous pen injector (Repatha SureClick) 140 mg SC MONTHLY High Cholesterol 12/05/24
famotidine 20 mg tablet (Pepcid) 20 mg PO DAILY Gastrointestinal Issue 12/05/24
nifedipine 60 mg tablet,extended release 24 hr 60 mg PO BID Blood Pressure 12/05/24
prednisone 5 mg tablet 5 mg PO DAILY Anti-Inflammatory 12/05/24
sevelamer carbonate 800 mg tablet 1,600 mg PO TID Kidney Disease 12/05/24
tacrolimus 1 mg tablet,extended release 24 hr (Envarsus XR) 6 mg PO DAILY post kidney transplant 12/05/24
tamsulosin 0.4 mg capsule (Flomax) 0.8 mg PO HS Urinary Issue 12/05/24
telmisartan 80 mg tablet 80 mg PO DAILY Blood Pressure 12/05/24
bumetanide 1 mg tablet 1 mg PO DAILY Fluid Retention/Swelling #30 tabs 12/07/24
carvedilol 6.25 mg tablet 6.25 mg PO BID #60 tabs 12/07/24
hydralazine 50 mg tablet 50 mg PO TID #90 tabs 12/07/24
Home Medication Changes
Bumex increased
Pending Results: No
[2024-12-07 18:52] VITALS: BP 155/64
--- NOTE | 2024-12-10 10:54 | W.HF.CON ---
Heart Failure
- LV Function
Left ventricular function study result: LV Ejection fraction >/= 50%
Ejection Fraction Percentage: 60-65
- ARNI
Patient already on ARNI: No
Heart Failure ARNI Contraindication: End Stage Renal Disease
- ACEI/ARB
Patient already on ACEI/ARB: Yes
- Beta Angelito
Patient already on Evidence Based Beta Angelito: Yes
- Mineralocorticord Receptor Antagonist
Patient already on MRA: No
Heart Failure MRA Contraindication: Cr > 2.5 in Men
- SGLT-2 Inhibitor
Patient already on SGLT-2 Inhibitor: No
Heart Failure SGLT-2 Inhibitor Contraindication: eGFR < 25
- NYHA CHF Classification
NYHA CHF Classification Level: Class III - Symptoms w/ min exertion, interferes w/ nml daily activity (severe MR)
- ACC/AHA Stage
ACC/AHA Stage: Stage C: Symptomatic Heart Failure
== END 2024-12-07 19:15 | disposition home or self-care (01) | DRG 698 ==
LOC: 3 WEST ACU 15:41
PROVIDERS: Emergency Medicine; Physician Assistant; Registered Nurse; ADMITTING PHYSICIAN Hospitalist; ATTENDING PHYSICIAN Internal Medicine; CONSULT PHYSICIAN Internal Medicine; CONSULT PHYSICIAN Specialist; EMERGENCY PHYSICIAN Emergency Medicine; FAMILY PHYSICIAN Nurse Practitioner Adult Health
PROC: 5A1D70Z Performance of Urinary Filtration, Intermittent, Less than 6 Hours Per Day (ICD-10-PCS; 2024-12-06)
DX: T86.12 Kidney transplant failure (principal); I50.33 Acute on chronic diastolic (congestive) heart failure; N18.6 End stage renal disease; J96.01 Acute respiratory failure with hypoxia; I5A Non-ischemic myocardial injury (non-traumatic); N02.B1 Recurrent and persistent immunoglobulin A nephropathy with glomerular lesion; I11.0 Hypertensive heart disease with heart failure; D63.1 Anemia in chronic kidney disease; D89.84 IgG4-related disease; J45.909 Unspecified asthma, uncomplicated; R33.9 Retention of urine, unspecified; N31.9 Neuromuscular dysfunction of bladder, unspecified; K21.9 Gastro-esophageal reflux disease without esophagitis; E78.00 Pure hypercholesterolemia, unspecified; E11.42 Type 2 diabetes mellitus with diabetic polyneuropathy; T50.1X6A Underdosing of loop [high-ceiling] diuretics, initial encounter; Z99.2 Dependence on renal dialysis; Z88.2 Allergy status to sulfonamides; Z88.1 Allergy status to other antibiotic agents; Z79.52 Long term (current) use of systemic steroids; Z79.899 Other long term (current) drug therapy; Z11.52 Encounter for screening for COVID-19; Z91.138 Patient's unintentional underdosing of medication regimen for other reason; Y83.0 Surgical operation with transplant of whole organ as the cause of abnormal reaction of the patient, or of later complication, without mention of misadventure at the time of the procedure
CPT/HCPCS: 71046; 80048; 80053; 80061; 83735; 83880; 84443; 84484; 85025; 85027; 87070; 87340; 87502; 87811; 93005; 93306; 93990; 96374; 99285; G0257; P9047; Q5106

== ENCOUNTER → 2024-12-12 16:25 | Outpatient (REF) | payer OTHER, SELFPAY | LOC: HWRAD 16:25 | PROVIDERS: ATTENDING PHYSICIAN Nurse Practitioner Adult Health | DX: R09.89 Other specified symptoms and signs involving the circulatory and respiratory systems (principal) | CPT/HCPCS: 71046 ==

== ENCOUNTER → 2025-01-02 12:26 | Outpatient (REF) | payer OTHER, SELFPAY | LOC: HWRCS 12:26 | PROVIDERS: ATTENDING PHYSICIAN Nurse Practitioner Gerontology; FAMILY PHYSICIAN Nurse Practitioner Adult Health | DX: R06.02 Shortness of breath (principal) | CPT/HCPCS: 78452; 93017; A9500; J2785 ==

== ENCOUNTER 2025-01-18 07:14 | Day surgery (SDC) | payer OTHER, SELFPAY | END 2025-01-18 09:15 | disposition home or self-care (01) | LOC: CATH 07:14 | PROVIDERS: ATTENDING PHYSICIAN Internal Medicine Cardiovascular Disease; FAMILY PHYSICIAN Nurse Practitioner Adult Health | DX: I08.0 Rheumatic disorders of both mitral and aortic valves (principal); I50.32 Chronic diastolic (congestive) heart failure; I11.0 Hypertensive heart disease with heart failure; Z94.0 Kidney transplant status; Z79.899 Other long term (current) drug therapy | CPT/HCPCS: 93312; 93320; 93325 ==

== ENCOUNTER 2025-02-26 06:49 | Day surgery (SDC) | payer OTHER, SELFPAY ==
[2025-02-19 09:32] VITALS: BMI 28.6
[2025-02-19 09:55] LABS: % Basophils 0.6 % (0-2); % Eosinophils 9.4 % (0-6); % Immature Granulocytes 0.3 % (0-0.5); % Lymphocytes 11.9 % (20.5-51.1); % Monocytes 8.6 % (1.7-9.3); % Neutrophils 69.2 % (42.2-75.2); Absolute Basophils 0.1 10^3/uL (0-0.2); Absolute Eosinophils 0.8 10^3/uL (0-0.7); Absolute Monocytes 0.7 10^3/uL (0.1-0.6); Hematocrit 32.4 % (39.0-52.0); Hemoglobin 10.6 g/dL (13.0-18.0); Mean Corp Hgb Conc. 32.7 g/dL (33.0-37.0); Mean Corpuscular Hgb 30.2 pg (27.0-31.0); Mean Corpuscular Volume 92.3 fL (80.0-94.0); Mean Platelet Volume 9.6 fL (7.4-10.4); Nucleated Red Blood Cells % 0 % (-); Platelet Count 260 10^3/uL (130-400); Red Blood Cell Count 3.51 10^6/uL (4.70-6.10); Red Cell Dist. Width 17.2 % (11.5-14.5); White Blood Cell Count 8.6 10^3/uL (4.8-10.8)
[2025-02-19 13:33] LABS: ALT (SGPT) 17 U/L (0-50); AST (SGOT) 23 U/L (17-59); Albumin 4.2 g/dl (3.5-5.0); Alkaline Phosphatase 89 U/L (38-126); Blood Urea Nitrogen 48 mg/dl (9-20); Calcium 9.4 mg/dl (8.4-10.2); Carbon Dioxide 27 mmol/L (22-30); Chloride 98 mmol/L (98-107); Estimated Creatinine Clearance 11 ml/min; Glucose 95 mg/dl (70-99); Potassium 4.1 mmol/L (3.5-5.1); Sodium 141 mmol/L (135-145); Total Bilirubin 0.8 mg/dl (0.2-1.3); Total Protein 7.2 g/dl (6.3-8.2); eGFR 6.89
[2025-02-26] VITALS (14 sets, daily range): BP systolic 153–195; BP diastolic 95–114; BMI 28.2
[2025-02-26] MEDS: LOW STRENGTH ASPIRIN 324 MG PO (07:20)
[2025-02-26] MEDS: NSS 283 ML IV (07:29)
--- NOTE | 2025-02-26 09:14 | ITS.CL.PN ---
Quality Lab Technician - Procedure Note
Procedure
Procedure Note:
CARDIAC CATHETERIZATION REPORT
Date of Procedure: 02/26/2025
Referring: Dr. Nicolas Taylor MD
Indication: severe mitral regurgitation
PROCEDURE(S)
1. right heart catheterization
2. left heart catheterization
3. coronary angiography
ACCESS
1. 6F right common femoral artery (closure: Angioseal x1)
2. 6F right femoral vein (closure: manual hemostasis)
CATHETERS
1. 6F Metz-Mateusz
2. 6F JR4
3. 6F JL4
MODERATE SEDATION: 30 minutes of moderate sedation was utilized. An independent medical device sales was present to assist with and help manage the patient's level of consciousness and physiologic status.
HEMODYNAMIC DATA
LV 174/15 (EDP 28) mmHg
AO 170/103 (mean 136) mmHg
RA 16 mmHg
RV 74/9 (EDP 27) mmHg
PA 76/34 (mean 53) mmHg
PCWP 32 (w/ v-waves to 45) mmHg
SaO2 94.5%
SvO2 66 point %
Hb 8.6 g/dL
CO/CI 8.18/3.78 L/min/m2
SVR 1173 dsc*-5
PVR 2.6 Wood units
CORONARY ANGIOGRAPHY
Dominance: right
LM: large, normal
LAD: Large vessel giving rise to a small D1 and large D2. There is a focal, eccentric up to 50% stenosis (most severe in caudal projections) in the proximal LAD just before the D2. There are otherwise mild luminal irregularities only.
LCx: large vessel giving rise to a large OM1, moderate caliber OM2, and small LPL branch. There are trivial luminal irregularities only.
RCA: Large vessel giving rise to a large RPDA and 3 RPL branches. There is no coronary artery disease.
RADIATION: dose 327 mGy; DAP 24.5 Gy*cm2; fluoroscopy time 5.0 min
CONCLUSIONS
1. Single-vessel coronary artery disease in a right dominant system as described with 50% stenosis in the proximal LAD and otherwise nonobstructive disease.
2. Severely elevated biventricular filling pressures, severe predominantly postcapillary pulmonary hypertension, and supranormal cardiac output in the setting of anemia
3. No aortic stenosis on hemodynamic pullback
RECOMMENDATIONS: Proceed with heart team discussion regarding optimal strategy to address severe MR.
Copy to: Dr. Rafael Salvador MD (insurance claim approver); PEÑA Ray (PCP)
Signed: Bruno Maria MD, PhD
[2025-02-26] MEDS: COREG 6.25 MG PO (10:05)
[2025-02-26] MEDS: APRESOLINE 50 MG PO (10:06)
== END 2025-02-26 12:10 | disposition home or self-care (01) ==
LOC: CATH 06:49
PROVIDERS: ATTENDING PHYSICIAN Student in an Organized Health Care Education/Training Program; FAMILY PHYSICIAN Nurse Practitioner Adult Health; OTHER PHYSICIAN Internal Medicine
DX: I25.10 Atherosclerotic heart disease of native coronary artery without angina pectoris (principal); I34.0 Nonrheumatic mitral (valve) insufficiency; I27.20 Pulmonary hypertension, unspecified; E78.2 Mixed hyperlipidemia; Z79.899 Other long term (current) drug therapy; Z79.52 Long term (current) use of systemic steroids
CPT/HCPCS: 99152; 99153; 36415; 80053; 85025; 93005; 93460; C1760; C1769; C1894; Q9967

== ENCOUNTER 2025-05-14 05:47 | Inpatient (IN) | payer OTHER, SELFPAY ==
[2025-05-07 08:56] VITALS: BMI 28.7
--- NOTE | 2025-05-07 09:12 | HPS.HSE ---
Family Physician
-
Family Physician: Tena Boyer
Chief Complaint
-
HARRINGTON and fatige
History of Present Illness
Mr. Rosa is a very pleasant 49 yom with a complex medical history significant for severe MR, HFpEF, HTN, ESRD, renal transplant recipient, acquired immunocompromised state, HD, mixed hyperlipidemia, amyloidosis. His most recent transesophageal
echocardiogram from 01/18/2025 is notable for normal left ventricular size and function. Mild concentric left ventricular hypertrophy. thickened mitral valve leaflets. Moderate to severe mitral regurgitation. Mechanism of mitral regurgitation appears
to be poor coaptation of leaflets likely due to severe left atrial enlargement. Mean gradient 1 mmHg. 3D valve area 6.46 cm2 Posterior leaflet 1.83 cm Trajectory height 4.85 cm. From a symptomatology standpoint, patient describes SOB with exertion
and while at rest and fatigue. He was recently hospitalized for HFpEF and due to his ESRF, transplant, and dialysis, his diuresis was managed by nephrology. His volume status was normalized and patient was deemed stable for discharge with continued
follow up care with cardiology and nephrology. Patient has been reviewed with the heart team and recommended for DEV.
Assessed patient in preadmission testing and confirmed medication list. 81 mg Aspirin will be initiated and he will continue including the morning of DEV. [facility] will [facility] to the [facility] at 0530. Allowed for and answered questions.
Medical History
Past Medical History
Past Medical History: Reports Asthma, CHF, HTN, Hypercholesterolemia, Valvular Disease (Functional MR) and Other (ESRD (HD), amyloidosis, G6PD, neuropathy)
Past Surgical History: Reports Orthopedic (achilles) and Other (fistula, kidney transplant, IVIG, drill procedure)
Social History
Tobacco: Non-smoker
Alcohol: Occasional
Drug: None
Personal:
Living: With Family
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
Family History
Family History: Not pertinent
Allergies / Home Medications
Allergies reflects when Allergies were last updated in [facility].
adhesive
dapsone
latex
sulfa
Home Medications with original date entered in [facility]
Bumetanide 1 MG Tablet 1 tablet daily EXCEPT for dialysis days (Sun, & ) Orally
Calcium Acetate 667 MG Tablet 1 tablet with meals Orally Three times a day
Carvedilol 6.25 MG Tablet 1 tablet with food Orally Twice a day
Cinacalcet HCl 90 MG Tablet 1 tablet with food or after a meal Orally 3 X weekly, MW
Envarsus XR(Tacrolimus ER) 4 MG Tablet Extended Release 24 Hour take 6mg Orally Once a Day , Notes to Pharmacist: tacrolimus (also has 1mg pills at home if needed)
Famotidine 20 MG Tablet 1 tablet in the morning Orally once daily
Flomax 0.4 MG Capsule 2 capsules Orally Once a day
hydrALAZINE HCl 50 MG Tablet 1 tablet with food Orally
TIDNIFEdipine ER 60 MG Tablet Extended Release 24 Hour 1 tablet Orally BID
predniSONE 5 MG Tablet 1 tablet Orally Once a Day
Repatha(Evolocumab) 140 MG/ML Solution Prefilled Syringe Inject 1 mL Subcutaneous once/month , Notes to Pharmacist: evolocumab
Telmisartan 80 MG Tablet 1 tablet Orally Once a day
Viagra(Sildenafil Citrate) 25 MG Tablet 1 tablet as needed once daily, 0.5-4h prior to sexual activity
Allergy/Medication List:
adhesive
dapsone
latex
sulfa
Review of Systems
-
A 12 point ROS was completed and negative except as noted: Yes
Constitutional: Reports Fatigue
Respiratory: Reports Other (HARRINGTON/SOB)
Physical Exam
Physical Exam
General: Well Developed, Well Nourished, No Apparent Distress and Comfortable
HEENT: NormoCephalic
Respiratory: Clear
Cardiac: Murmur (holosystolic )
Breast: Deferred by me
GI: Soft and Non Tender
Rectal: Deferred by Provider
Genito-urinary: Deferred by me
Musculoskeletal: No Edema
Skin: Warm and Dry
Neuro: Awake, Alert, Oriented and AO x 3
Psych: Calm
Data Reviewed
-
Medical Tests (Nuc Med, Echo, EKG etc): Report Reviewed by me and Discussed with Physician (SHANE reviewed with the heart team)
Lab Data: Labs Reviewed by me
Old Records: Reviewed
Impression/Plan
-
IMPRESSION/PLAN:
Functional MR
DEV scheduled for 05/14/2025 With Gabriela Blancas, and Cherry
POD#1/#30 echocardiogram
Initiate and continue 81 mg aspirin
Cardiac rehab consult
[2025-05-07 09:45] LABS: INR 1.04; PT 13.9 Sec (11.4-14.6)
--- NOTE | 2025-05-07 10:00 | CM ---
Met with Mr. Rosa in [facility]. He states prior to admission he resides alone in a two story home with ten steps to enter. He states he will be staying with his significant other home to stay after his MitraClip. He states she does not have any
steps in the home. He states prior to admission he was independent with ambulation and adls. He states he does not have any DME in the home. He states he has a prescription plan and uses [facility]. The discharge plan is to go to his
significant other home with a home visit by the Transitional Care Nurse when medically stable.
We reviewed pre-op and post-op routines. We reviewed the shower instructions. He has the soap, written instructions and the Mitraclip Booklet. We reviewed restrictions including lifting and driving restrictions. We discussed a home visit by the
Transitional Care Nurse. He is agreeable to a home visit. The plan is to [facility]rac[facility] on Wednesday, May 14, 2025.
[2025-05-07 10:13] LABS: ALT (SGPT) 14 U/L (0-50); AST (SGOT) 19 U/L (17-59); Albumin 4.4 g/dl (3.5-5.0); Alkaline Phosphatase 93 U/L (38-126); Blood Urea Nitrogen 44 mg/dl (9-20); Calcium 9.3 mg/dl (8.4-10.2); Carbon Dioxide 27 mmol/L (22-30); Chloride 101 mmol/L (98-107); Estimated Creatinine Clearance 10 ml/min; Glucose 104 mg/dl (70-99); Potassium 5.1 mmol/L (3.5-5.1); Sodium 140 mmol/L (135-145); Total Protein 8.6 g/dl (6.3-8.2); eGFR 6.44
[2025-05-07 10:15] LABS: Hematocrit 35.3 % (39.0-52.0); Hemoglobin 11.5 g/dL (13.0-18.0); Mean Corp Hgb Conc. 32.6 g/dL (33.0-37.0); Mean Corpuscular Volume 94.6 fL (80.0-94.0); Platelet Count 234 10^3/uL (130-400); Red Cell Dist. Width 17.6 % (11.5-14.5)
[2025-05-07 10:19] LABS: Glycohemoglobin (HgbA1c) 4.5 % (4.0-5.6)
[2025-05-07 10:38] LABS: Absolute Neutrophils -Man Diff 3.8 10^3/uL (1.4-6.5)
[2025-05-07 10:39] LABS: Normal RBC Morphology Yes; Platelets Checked Yes; Total Cells Counted 100
[2025-05-14] VITALS (30 sets, daily range): BP systolic 123–202; BP diastolic 78–97; BMI 27.7
[2025-05-14] MEDS: BACTROBAN 2% OINTMENT 1 APPLIC NASAL (06:16)
--- NOTE | 2025-05-14 06:40 | PTCARENOTE ---
Patient received as direct admit for Mitraclip this morning. Ambulated independently to the room. AOx3, pupils +2 brisk and reactive, bilateral upper and lower extremity strength normal. Reports baseline neuropathy in his feet. LUE restriction D/T
AV fistula, positive B/T. Right forearm 18G inserted by IV team. Clip and CHG bathing cloths completed. RUE BP taken, unable to take LUE BP due to extremity restriction. Type and screen sent per order. Surgical consent and updated H&P not present in
chart, no updated H&P noted in the EMR at this time, Dr. Maria notified. Confirmed patient home med list and last known administration dates for medications. Sinus rhythm on telemetry. Oxygen saturation 97% on room air. Respiratory rate and
pattern WDL. Denies pain at this time. Lungs clear to auscultation bilaterally. Radial pulses weak to palpation. DP pulses +2 to palpation. Murmur noted. Call schmid within reach. Care ongoing.
--- NOTE | 2025-05-14 06:44 | PTCARENOTE ---
Per Dr. Maria he will consent the patient for surgery and update the H&P this morning
--- NOTE | 2025-05-14 07:50 | PTCARENOTE ---
Assumed care of pt from prev nsg shift; Pt AAOx3 w/no c/o CP or SOB. Pt patiently awaiting surgery this AM w/prep completed by prev nsg shift; Report given to Cris in the sugar laboratory assistant & pt transported in bed at approx 0740. Pt will nd to transfer to
an HD rm post procedure as he is sched for HD post. Discussed plan of care w/pt. No addtl needs, plan ongoing.
[2025-05-14 11:17] LABS: ACT-LR - POC 310 Seconds (116-155)
--- NOTE | 2025-05-14 11:44 | ITS.CL.PN ---
Section Leader And Machine Setter - Procedure Note
Procedure
Procedure Note:
Mitral Valve Transcatheter Fwbe-tr-Tuyu Repair with MitraClip
Date of Procedure: 05/14/2025
Referring: Dr. Rafael Salvador MD
Indication: symptomatic, moderate-severe, atrial functional mitral valve regurgitation at high surgical risk
Operators: Bruno Maria MD, PhD (interventional cardiology, co-rivet hammer machine operator); Dr. Gail Ochoa MD (interventional cardiology, co-rivet hammer machine operator); Dr. Billy Carey MD (cardiac imaging)
Anesthesia: general anesthesia provided by the anesthesia staff
PROCEDURES:
1. MitraClip transcatheter edge to edge repair with single XTW clip
ACCESS: 25F right femoral vein (closure: Perclose x2) - Ultrasound was utilized for vascular access. The vessel was visualized under ultrasound and noted to be patent. An image of the vessel was stored permanently in the patient's medical record.
Under direct ultrasound guidance, vascular access was obtained using a modified Seldinger technique and an 8 Kyr[place]z sheath was placed.
PROCEDURE NARRATIVE:
The patient was intubated and sedated by anesthesiology and then prepped and draped in standard sterile fashion. A SHANE probe was placed by cardiology and imaging performed demonstrating no left atrial appendage thrombus and no pericardial effusion.
Under ultrasound guidance, the right femoral vein was accessed. Two Perclose ProGlide sutures were placed in preclose fashion and an 8F sheath placed. Heparin was administered to achieve ACT>300.
Via the 8F sheath, a J-wire was placed in the SVC. The 8F sheath was exchanged for an 8.5F [place] VersaCross Sheath and the J-wire exchanged for a [place] VersaCross RF wire. Under SHANE guidance, the sheath was navigated to an appropriate posterior
superior portion of the septum. In a 4-chamber view, height above the mitral valve annulus was measured at 4.2 cm. Under RF application, the RF wire crossed into the LA and position was verified in the left upper pulmonary vein on SHANE. The sheath
was advanced through the septum to dilate the septum. The sheath was then removed, and serial dilation of the venous access site performed followed by placement of the MitraClip sheath which was advanced to the septum and crossed into the left
atrium followed by removal of the wire and dilator. Left atrial pressure was measured at 1 mmHg.
Initial clip strategy was to deploy a single XTW clip in the central aspect of the jet (medial aspect of A2-P2). A MitraClip XTW clip delivery system was prepared on the back table and advanced to the tip of the sheath. Under SHANE guidance, the clip
was advanced out of the sheath to straddle position and carefully maneuvered until it was centralized above the valve plane. The clip was opened and grippers checked. Clip position, orientation, and trajectory were iteratively adjusted under 2D and
3D SHANE guidance. In a grasping view, the clip was crossed into the LV. Position and orientation were again verified with 2D and 3D SHANE. The clip was carefully pulled back until anterior and posterior leaflet capture was observed and the grippers
were then dropped with tissue capture observed. Optimization of the anterior clip arm was performed by opening the anterior gripper, moving the delivery system anterior, and then again dropping the anterior gripper. The clip was then closed to 60
degrees, capture was verified, and the clip was then fully closed. Mitral regurgitation was assessed as mild. Mitral gradient was 3 mmHg. Both anterior and posterior leaflets appeared to have tension with the clip closed suggesting that there was
sufficient grasp and further optimization would not allow for additional leaflet capture. Clip release was performed in the usual fashion and the clip was verified to be stable on SHANE and fluoroscopy after release. There was no significant change in
MR or mitral gradients post release. The CDS was removed with the guide aspirated. Left atrial pressure was measured at 2 mmHg. The sheath was removed from the LA and there was observed to be an expected ASD without significant R-L flow. There was
no effusion. The sheath was removed from the venotomy and the venotomy closed with deployment of the PerClose sutures with excellent hemostasis verified. This concluded the procedure. The patient was extubated by anesthesia and taken to the cath
recovery unit in stable condition.
RADIATION: dose 395 mGy; DAP 64.9 Gy*cm2; fluoroscopy time 28.9 min
CONCLUSION: mitral transcatheter wogo-zc-aumb repair with placement of single XTW clip with reduction of MR from 3+ (moderate-severe) to 1+ (mild).
RECOMMENDATIONS:
1. continue single antiplatelet therapy with ASA 81 mg daily
2. dialysis today
3. repeat TTE in AM
4. repeat TTE in 1 month
Copy to: Dr. Rafael Salvador MD (clinical nurse manager); Tena Boyer NP (PCP)
Signed: Bruno Maria MD, PhD
--- NOTE | 2025-05-14 11:49 | ITS.CL.PN ---
[employer] Member - Procedure Note
Procedure
Procedure Note:
TRANSCATHETER EDGE - TO - EDGE MITRAL VALVE REPAIR (DEV)/MITRACLIP REPORT
Date: May 14, 2025
Referring: Rafael Sebastianxavier
Preoperative diagnosis: Moderate to severe atrial functional mitral valve regurgitation at medial aspect of A2/P2
Postoperative diagnosis: Moderate to severe atrial functional mitral valve regurgitation at medial aspect of A2/P2
Procedure(s): Transcatheter mitral valve edge to edge repair/MitraClip using 1 XTW clip.
Preprocedure MR severity: Moderate to severe
Postprocedure MR severity: Mild
Interventional Cardiology Operators: Drs. Gail Ochoa (access and trans-septal puncture), and Bruno Maria (Clip delivery)
SHANE Correctional Officer Captain(s): Sandi Carey MD
Anesthesia: GETA provided by the anesthesia staff.
Estimated Blood Loss: Minimal.
Complications: None.
Condition: Stable.
PROCEDURAL DETAILS:
The patient was brought to the cardiac catheterization lab and anesthetized by the anesthesiology staff. A transesophageal probe was placed and preliminary echocardiography was performed. The patient was prepped and draped in standard sterile
fashion. The right common femoral vein was accessed using a modified Seldinger technique with a micropuncture kit under ultrasound guidance. The vein was dilated with an 8 Slovenian dilator then preclosed with a Perclose percutaneous suture. And 8
Slovenian sheath was placed in the femoral vein. Heparin 8000 units was given.
The [place] VersaCross system was prepped on the back table. The J-wire for the versa cross was advanced into the superior vena cava and the 8 Slovenian sheath was removed. The transseptal sheath was advanced over the wire and into the superior vena
cava. The J-wire was removed and the versa cross wire was advanced to the distal tip of the sheath, but remained within the dilator. This sheath was positioned in the interatrial septum with confirmed position on SHANE. Transseptal puncture was
performed by Dr. Gail Ochoa and the sheath was advanced into the left atrium. Additional heparin was given to achieve a therapeutic ACT. ACT was confirmed above 250 seconds. Oxygen saturation confirmed presence in the left atrium.
The MitraClip steerable sheath was prepped on the back table. The [place] sheath was withdrawn keeping the versa cross wire in the left atrium. The femoral vein was serially dilated and the steerable sheath was advanced through the vein, easily
crossing into the left atrium. Once we had satisfactory purchase of the sheath inside the left atrium the dilator and versa cross wire were removed and the steerable sheath was completely de-aired and flushed.
A(n) XTW MitraClip Delivery System was prepped on the back table. The clip was advanced through the steerable sheath and into the left atrium. The clip was oriented and advanced subvalvular to the mitral valve. Once we were satisfied with with
position, the grippers were lowered and the clip arms were tightened to 60 degrees. This demonstrated good position and clip stability. The clip was fully closed demonstrating trace to mild residual mitral regurgitation. Transvalvular gradient was
stable at 3 mmHg. We were satisfied with these preliminary results and the clip was deployed. The delivery system was removed from the steerable sheath.
The mitral valve was reevaluated. Mitral valve regurgitation was now graded at mild. Mitral valve regurgitation continue to remain stable at mild with good systemic blood pressure, good tissue bridge on 3D imaging and stable mitral valve gradient at
2 mmHg. No pericardial effusion was noted.
At this point, we were satisfied with our results. The steerable sheath was withdrawn into the right atrium, then negative tension was applied to straighten the catheter. The steerable sheath was withdrawn and the Perclose percutaneous suture was
tightened with good hemostasis.
The patient tolerated the procedure well, was brought out of anesthesia and transferred to the recovery room in stable condition.
IMPLANT(S)/POSITION:
1. 1 XTW MitraClip on medial aspect of A2/P2
RADIATION:Dose (mGy): 28.9; DAP (cm2.Gy): 395; Fluoroscopy time (minutes): 64.9
VALVE HEMODYNAMICS:
Preoperative
MR severity: Moderate to severe
Transmitral gradient (mmHg): 1
Postoperative
MR severity: Mild
Transmitral gradient (mmHg): 2
CONCLUSIONS:
1. Moderate to severe atrial functional mitral valve regurgitation s/p successful DEV using one XTW with reduction in mitral regurgitation from moderate-severe to mild and a final mean transmitral gradient of 2.
RECOMMENDATIONS:
1. Routine post procedure care.
2. Transthoracic echocardiogram ordered for tomorrow morning.
3. Antithrombotic therapy with daily aspirin 81 mg
4. Aggressive ultrafiltration as hemodynamics allow at the time of dialysis given acute decompensated heart failure with preserved ejection fraction.
Gail Ochoa MD, FACC, [facility]
Copy to: Rafael Salvador MD
--- NOTE | 2025-05-14 12:40 | PTCARENOTE ---
Rec'd report from Damaris in the sawyer cork slabs; Rec'd pt back AAOX3 w/no c/o CP or SOB. Pt reports 'mild, 2/10 low back pain'; Pt declined anything for pain asking is HOB can be raised. This RN explained bedrest & mobility restrictions for the 4 hrs post
procedure as ordered. Pt verbalized his understanding. Pt's HR in the 50's-60's, but BP elevated at 171/93 on arrival back from technology lab teacher. Pt is SB/SR on telemetry monitoring. R groin site w/dressing C/D/I w/no signs or symptoms of bleeding or
hematoma. HD nurse in to see pt & begin HD. Pt's spouse at bedside. Call schmid within reach & plan of care ongoing.
[2025-05-14] MEDS: ANCEF 10 IV ×2 (12:41→17:35)
[2025-05-14] MEDS: ANCEF IV (12:41)
[2025-05-14 13:11] LABS: Hematocrit 32.1 % (39.0-52.0); Hemoglobin 10.9 g/dL (13.0-18.0); Mean Corp Hgb Conc. 34.0 g/dL (33.0-37.0); Mean Corpuscular Volume 93.3 fL (80.0-94.0); Platelet Count 207 10^3/uL (130-400); Red Cell Dist. Width 18.1 % (11.5-14.5)
--- NOTE | 2025-05-14 14:19 | CM ---
Reviewed chart. Mr Rosa was in the operating room today. Prior to admission he resides alone in a two story home with ten steps to enter. He states he is planning on staying with his significant other in [place]. She does not have any steps
in her home. Prior to admission he was independent with ambulation and adls. He does not have any DME in the home. He has a prescription plan and uses [facility]. He does to outpatient dialysis on , and Tuesday at 6:00 p.m.
Medical work-up in progress. The discharge plan is to his significant other home, outpatient dialysis and a home visit by the Transitional Care Nurse when medically stable.
[2025-05-14 14:41] LABS: ACT-LR - POC 319 Seconds (116-155)
[2025-05-14 14:41] LABS: ACT-LR - POC 266 Seconds (116-155)
[2025-05-14 14:41] LABS: ACT-LR - POC 331 Seconds (116-155)
[2025-05-14 14:41] LABS: ACT-LR - POC 268 Seconds (116-155)
--- NOTE | 2025-05-14 14:52 | W.CON.NEPH ---
Consultation
-
Date/Time Consultation Requested: 05/14/25 1103
Date/Time Consultation Performed: 05/14/25 1545
Requesting Provider: Marcela Bolanos
Performing Provider: Morenita Cat
Reason for Consultation: ESRD
Medical History
-
Chief Complaint: Shortness of breath
History of Present Illness:
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
and Sundays for 6hrs, IgG4 disease, hypertension on nifedipine, hydralazine, telmisartan, carvedilol, secondary hyperparathyroidism on Sensipar. HLD, Amyloidosis, He lately has significant shortness of breath required hospitalization earlier
this year. SHANE in January shows normal EF however with moderate to severe mitral regurgitation. Given ongoing respiratory issues is now admitted electively and underwent a mitral Today. Nephrology asked for dialysis needs. He does have h/o urinary
retention for which straight catheterizes himself.
He offers no cp or sob. no abd pain or n/v. No fever or cough. No issues with HD or AVF.
Past Medical History
ESRD
Left upper extremity AV fistula, DRIL, stent
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
Hypertension
Urinary retention/neurogenic bladder
Asthma
Achilles tendon repair
Past Surgical History: Orthopedic (achillis) and Other (fistula, kidney transplant, IVIG, drill procedure)
Social History
Tobacco: Non-Smoker
Alcohol: Occasional
Personal:
Living: With Family
Employment: Other
Family History
Family History: Not Pertinent
Allergies / Home Medications
Allergy/AdvReac Type Severity Reaction Status Date / Time
adhesive Allergy Rash Verified 02/26/25 07:08
dapsone Allergy Hives Verified 02/26/25 07:08
latex Allergy Rash Verified 02/26/25 07:08
sulfamethoxazole (From Allergy Hives Verified 02/26/25 07:08
Bactrim)
trimethoprim (From Bactrim) Allergy Hives Verified 02/26/25 07:08
�Medication �Instructions �Recorded �Confirmed �Type
cinacalcet 90 mg tablet 90 mg PO SUTUTH Kidney Disease 12/05/24 05/14/25 History
evolocumab 140 mg/mL subcutaneous 140 mg SC MONTHLY High Cholesterol 12/05/24 05/14/25 History
pen injector (Jaylen Patel)
famotidine 20 mg tablet (Pepcid) 20 mg PO DAILY Gastrointestinal 12/05/24 05/14/25 History
Issue
nifedipine 60 mg tablet,extended 60 mg PO BID Blood Pressure 12/05/24 05/14/25 History
release 24 hr
prednisone 5 mg tablet 5 mg PO DAILY Anti-Inflammatory 12/05/24 05/14/25 History
tacrolimus 1 mg tablet,extended 6 mg PO DAILY post kidney 12/05/24 05/14/25 History
release 24 hr (Envarsus XR) transplant
tamsulosin 0.4 mg capsule (Flomax) 0.8 mg PO HS Urinary Issue 12/05/24 05/14/25 History
telmisartan 80 mg tablet 80 mg PO DAILY Blood Pressure 12/05/24 05/14/25 History
carvedilol 6.25 mg tablet 6.25 mg PO BID #60 tabs 12/07/24 05/14/25 Rx
hydralazine 50 mg tablet 50 mg PO TID #90 tabs 12/07/24 05/14/25 Rx
calcium acetate 667 mg tablet 667 mg PO TID 02/26/25 05/14/25 History
sildenafil 25 mg tablet 25 mg PO DAILY PRN PRN 02/26/25 05/14/25 History
bumetanide 1 mg tablet 1 mg PO DAILY mowefrsa 05/14/25 05/14/25 History
Review of Systems
-
All other systems: Negative unless noted
Physical Exam
Vital Signs
Vital Signs
Temp Pulse Resp BP Pulse Ox
97.4 F 64 20 191/95 94
05/14/25 12:35 05/14/25 14:00 05/14/25 12:35 05/14/25 14:00 05/14/25 14:00
Lab Results
WBC 6.3 10^3/uL (4.8-10.8) 05/14/25 13:03
RBC 3.44 10^6/uL (4.70-6.10) L 05/14/25 13:03
Hgb 10.9 g/dL (13.0-18.0) L 05/14/25 13:03
Hct 32.1 % (39.0-52.0) L 05/14/25 13:03
Plt Count 207 10^3/uL (130-400) 05/14/25 13:03
Sodium 140 mmol/L (135-145) 05/07/25 09:04
Potassium 5.1 mmol/L (3.5-5.1) 05/07/25 09:04
Chloride 101 mmol/L (98-107) 05/07/25 09:04
Carbon Dioxide 27 mmol/L (22-30) 05/07/25 09:04
BUN 44 mg/dl (9-20) H 05/07/25 09:04
Creatinine 9.1 mg/dL (0.7-1.3) H* 05/07/25 09:04
eGFR 6.44 05/07/25 09:04
Glucose 104 mg/dl (70-99) H 05/07/25 09:04
Calcium 9.3 mg/dl (8.4-10.2) 05/07/25 09:04
Afo-W-Aschgedsrnj Pept 33735 pg/ml 05/07/25 09:05
Albumin 4.4 g/dl (3.5-5.0) 05/07/25 09:04
Physical Exam
General: Awake, Alert, Oriented, AOx3, No Distress and Nontoxic
HEENT: Anicteric, Conjunctivae Clear, Facial Symmetry and Neck Supple
Respiratory: Clear, Normal Excursion and Nonlabored Respirations
Cardiac: S1/S2, Regular Rate/Rhythm and Murmur
Breast: Deferred by me
Abdomen: Soft, Nontender and Nondistended
Musculoskeletal: No Cyanosis and No Edema
Skin: No Rash
Neuro: Nonfocal/Grossly Intact
Psych: Mood/afflect pleasant, Insight/judgement good and Appropriate
Vascular Access: AVF (left UE with anuerysm-per pt is stable)
Data Reviewed
-
Labs: Labs Reviewed by me and Discussed with Patient
Assessment/Plan
-
Assessment
severe functional MR status post mitral clip 05/14
ESRD on nocturnal dialysis Sundays at [facility]
Anemia
IgG4 related disease
Failed kidney transplant
Acute heart failure
Hypertension
Urinary retention
Plan
s/p MV clip today
arrange HD , last HD seem on tuesday
Bp stable
UF as tolerates , vol status stable
resume home meds
d/w pt
--- NOTE | 2025-05-14 17:27 | W.PN.NEPH.HD ---
Assessment
-
pt seen during HD
vitals stable
UF as tolerates
AVF functions fine
Progress Note - Hemodialysis
-
Date of Service: May 14, 2025
Duration: 4 hours
Potassium Bath: 2
Calcium Bath: 2.5
Opti-Dialyzer: 160
Ultrafiltration: Other (2kg)
Blood Flow: 400
Dialysate Flow: 600
Heparin: no
EPO: no
[2025-05-14] MEDS: SENSIPAR 90 MG PO (17:34)
[2025-05-14] MEDS: APRESOLINE 50 MG PO ×2 (17:35→22:09)
[2025-05-14] MEDS: FLUSH (NSS) 2 FLUSH IV (17:36)
[2025-05-14] MEDS: ANCEF 5 IV (17:38)
[2025-05-14] MEDS: PHOSLO 667 MG PO (18:25)
[2025-05-14] MEDS: PROCARDIA XL (EXTENDED RELEASE) 60 MG PO (19:49)
[2025-05-14] MEDS: COREG 6.25 MG PO (19:50)
--- NOTE | 2025-05-14 21:42 | PTCARENOTE ---
Rec'd pt at change of shift. Pt AAO*3, VSS, and SR on TELE monitor. Pt post mitral clip with R femoral vein access dressing CDI. R A line dressing CDI. Pt resting with call schmid in reach. Pt verbalized understanding of activity restrictions and
instructed to call for staff assistance before ambulating. Pt agreed and currently resting with call schmid in reach. See MAR and flowchart for full pt care and assessment.
Rec'd telephone order for loading dose of plavix sat from DR solano.
Rec'd order for daily dose of plavix starting 05/14/2025 at 8AM. Verbal orders sent to pharmacy.
[2025-05-14] MEDS: FLOMAX 0.8 MG PO (22:09)
[2025-05-14] MEDS: PLAVIX 600 MG PO (22:09)
[2025-05-15] VITALS (8 sets, daily range): BP systolic 141–170; BP diastolic 81–104; PULSE 67; O2SAT 96–97; BMI 27.4
[2025-05-15] MEDS: ANCEF 5 IV (02:41)
[2025-05-15 03:12] LABS: Hematocrit 32.6 % (39.0-52.0); Hemoglobin 11.0 g/dL (13.0-18.0); Mean Corp Hgb Conc. 33.7 g/dL (33.0-37.0); Mean Corpuscular Volume 92.6 fL (80.0-94.0); Platelet Count 224 10^3/uL (130-400); Red Cell Dist. Width 18.0 % (11.5-14.5)
[2025-05-15 03:49] LABS: ALT (SGPT) < 10 U/L (0-50); AST (SGOT) 17 U/L (17-59); Albumin 3.9 g/dl (3.5-5.0); Alkaline Phosphatase 79 U/L (38-126); Blood Urea Nitrogen 31 mg/dl (9-20); Calcium 8.8 mg/dl (8.4-10.2); Carbon Dioxide 26 mmol/L (22-30); Chloride 101 mmol/L (98-107); Estimated Creatinine Clearance 14 ml/min; Glucose 103 mg/dl (70-99); Magnesium 2.2 mg/dl (1.6-2.3); Potassium 4.3 mmol/L (3.5-5.1); Sodium 138 mmol/L (135-145); Total Protein 7.9 g/dl (6.3-8.2); eGFR 8.82
[2025-05-15] MEDS: PHOSLO 667 MG PO (08:36)
[2025-05-15] MEDS: COZAAR 100 MG PO (08:36)
[2025-05-15] MEDS: APRESOLINE 50 MG PO (08:36)
[2025-05-15] MEDS: PROCARDIA XL (EXTENDED RELEASE) 60 MG PO (08:36)
[2025-05-15] MEDS: PLAVIX 75 MG PO (08:36)
[2025-05-15] MEDS: DELTASONE 5 MG PO (08:36)
[2025-05-15] MEDS: LOW STRENGTH ASPIRIN 81 MG PO (08:37)
[2025-05-15] MEDS: COREG 6.25 MG PO (08:37)
[2025-05-15] MEDS: PEPCID 20 MG PO (08:37)
[2025-05-15] MEDS: BUMEX 1 MG PO (08:39)
--- NOTE | 2025-05-15 10:07 | W.PN.CARDCBS ---
Addendum entered and electronically signed by Billy Carey MD 05/15/25 11:01:
I saw and examined the patient.
The HEALTHCARE RECRUITER's note was reviewed and I agree with the note.
He is feeling well without complaint. He has an rrr, no m/r/g. He has a soft RFV site no hematoma. Echo below. He has already had HD this am. Ok for discharge home with follow up.
Comment:
TTE: 05/15/25 CONCLUSIONS
Normal biventricular size and systolic function without regional wall motion
abnormality.
Elevated E/e' ratio at 24 mmHg with LAE, and elevated PASP suggests grade II
diastolic dysfunction with elevated LA pressured.
Mild biatrial enlargement.
Known XTW MitraClip placement in the A2 P2 orientation. The clip is appears
to be well positioned without rocking.
Mild mitral regurgitation. Mean mitral valve gradient is 5 mmHg.
Mild tricuspid regurgitation.
Estimated PASP 39 mmHg and estimated RA 3 mmHg.
No significant change post procedure SHANE performed yesterday when mean MV
gradient was 3 mmHg. Estimated PA pressure is significantly lower than at cath
in February 2025 and echo in Nov 2024.
Original Note:
Today's Communication / Plan
-
post MitraClips
awaiting f/u Echo this am
DAPT for 3 mo
home today
Impression / Plan
-
Primary care physician: Tena Boyer NP
Primary embedded case manager: Dr. Rafael Salvador MD
Impression/Plan:
#Moderate-severe functional MR - post DEV using 1 MitraClip, post reduction to mild with MG 2.
DAPT ASA/Plavix for 3 months
f/u Echo this am pending, groin stable, activity restrictions reviewed
30d echo scheduled
#ESRD on HD T-- - prior renal tx 2017 failed d/t cellular rejection. 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
post MitraClip procedure plan for placement on transplant list
continue prednisone, Envarsus
#HTN - stable on carvedilol, hydralazine, nifedipine, telmisartan
#urinary retention/neurogenic bladder - self cath as needed, continue tamsulosin
#Asthma - stable
d/c home after Echo read
Progress Note - Multimedia Services Coordinator
Subjective
Date of Service: May 15, 2025
denies cp, sob
Objective
Labs:
05/15/25 02:52
05/15/25 02:52
Labs
Hgb 11.0 g/dL (13.0-18.0) L 05/15/25 02:52
Hct 32.6 % (39.0-52.0) L 05/15/25 02:52
Plt Count 224 10^3/uL (130-400) 05/15/25 02:52
PT 13.9 Sec (11.4-14.6) 05/07/25 09:04
INR 1.04 05/07/25 09:04
Sodium 138 mmol/L (135-145) 05/15/25 02:52
Potassium 4.3 mmol/L (3.5-5.1) 05/15/25 02:52
BUN 31 mg/dl (9-20) H 05/15/25 02:52
Creatinine 7.0 mg/dL (0.7-1.3) H* 05/15/25 02:52
Glucose 103 mg/dl (70-99) H 05/15/25 02:52
Vital Signs and I&O:
Vital Signs
Temp Pulse Resp BP Pulse Ox
98.5 F 72 20 146/81 93
05/15/25 06:53 05/15/25 08:37 05/15/25 06:53 05/15/25 08:37 05/15/25 08:30
Vital Signs
Temp Pulse Resp BP Pulse Ox
98.5 F 72 20 146/81 93
05/15/25 06:53 05/15/25 08:37 05/15/25 06:53 05/15/25 08:37 05/15/25 08:30
Intake & Output
05/13/25 05/14/25 05/15/25 05/16/25
06:59 06:59 06:59 06:59
Intake Total 1200 / 1200
Balance 1200 / 1200
Physical Exam
Physical Exam
NAD, AOX3
S1, S2, RRR, 3/6 JATINDER at apex
CTAB, non labored, no wheeze
SNTND bsx4
R fem site scant serosanguineous drainage, soft no HT
--- NOTE | 2025-05-15 10:35 | CM ---
Reviewed chart. Met with Mr. Rosa to review discharge plans. He states he is feeling well and maybe able to go home soon. He states he is planning on staying a few days with his significant other, at [facility], [place] [address].
Her home is a two story home. Prior to admission he resides alone in a two story home. Prior to admission he was independent with ambulation and adls. He does not have any DME in the home. He has a prescription plan and uses [facility]. He does
to outpatient dialysis at [facility] outpatient dialysis on Tuesday, Tuesday and at 6:00 p.m. We reviewed a home visit by the Transitional Care Nurse. He is agreeable to a home visit. Medical work-up in progress. The discharge plan is to go
home with his significant other for a few days and a home visit by the Transitional Care Nurse when medically stable.
--- NOTE | 2025-05-15 11:14 | W.PN.NEPH.PH ---
Today's Communication / Plan
-
dc
Assessment/Plan
-
Assessment
severe functional MR status post mitral clip 05/14
ESRD on nocturnal dialysis Sundays at [facility]
Anemia
IgG4 related disease
Failed kidney transplant
Acute heart failure
Hypertension
Urinary retention
Plan
s/p MV clip
next HD night
for dc
-
-
Date of Service: May 15, 2025
CC / HPI / ROS
-
Chief Complaint:
ESRD
History of Present Illness:
tolerated HD yesterday
BP stable
s/p mitraclip, no new issues
Review of Systems:
no CP/SOB
Labs
-
Labs:
WBC 8.7 10^3/uL (4.8-10.8) 05/15/25 02:52
RBC 3.52 10^6/uL (4.70-6.10) L 05/15/25 02:52
Hgb 11.0 g/dL (13.0-18.0) L 05/15/25 02:52
Hct 32.6 % (39.0-52.0) L 05/15/25 02:52
Plt Count 224 10^3/uL (130-400) 05/15/25 02:52
Sodium 138 mmol/L (135-145) 05/15/25 02:52
Potassium 4.3 mmol/L (3.5-5.1) 05/15/25 02:52
Chloride 101 mmol/L (98-107) 05/15/25 02:52
Carbon Dioxide 26 mmol/L (22-30) 05/15/25 02:52
BUN 31 mg/dl (9-20) H 05/15/25 02:52
Creatinine 7.0 mg/dL (0.7-1.3) H* 05/15/25 02:52
eGFR 8.82 05/15/25 02:52
Glucose 103 mg/dl (70-99) H 05/15/25 02:52
Calcium 8.8 mg/dl (8.4-10.2) 05/15/25 02:52
Bnk-F-Abncmslbden Pept 15738 pg/ml 05/07/25 09:05
Albumin 3.9 g/dl (3.5-5.0) 05/15/25 02:52
Physical Exam
-
Vital Signs:
Vital Signs
Temp Pulse Resp BP Pulse Ox
98.5 F 72 20 146/81 93
05/15/25 06:53 05/15/25 08:37 05/15/25 06:53 05/15/25 08:37 05/15/25 08:30
Cardiovascular:: Regular rate and rhythm
Respiratory:: Bilateral: CTA
Lung Excursion:: Normal
Abdomen:: Nontender and Soft
Bowel Sounds:: Normal
Extremity Edema:: None: Bilateral:
--- NOTE | 2025-05-15 12:30 | W.DS.TRANS ---
DC Summary - Program Consultant
-
Discharge Instructions:
Discharge Diagnosis/Procedures Mitraclip
Diet Low Fat,Low Cholesterol,2 Gram Sodium
Activity As tolerated
Driving Restrictions No driving for 1 week
Bathing Restrictions OK to Shower
Others Tests 30-day follow up echocardiogram: 06/14/2025 @ 10:
20 at [facility]
Other Services Cardiac Rehab
Wound Care NO LOTIONS, POWDERS, OR CREAMS TO PUNCTURE SITES
Specialty Instructions Weigh Daily
Instructions:
Stand-Alone Forms: DC Instructions- Cath/EP Lab
Changes to Home Medications: Yes
Discharge Medications:
DC Medications w/original date entered in [employer]
cinacalcet 90 mg tablet 90 mg PO SUTUTH Kidney Disease 12/05/24
evolocumab 140 mg/mL subcutaneous pen injector (Repatha SureClick) 140 mg SC MONTHLY High Cholesterol 12/05/24
famotidine 20 mg tablet (Pepcid) 20 mg PO DAILY Gastrointestinal Issue 12/05/24
nifedipine 60 mg tablet,extended release 24 hr 60 mg PO BID Blood Pressure 12/05/24
prednisone 5 mg tablet 5 mg PO DAILY Anti-Inflammatory 12/05/24
tacrolimus 1 mg tablet,extended release 24 hr (Envarsus XR) 6 mg PO DAILY post kidney transplant 12/05/24
tamsulosin 0.4 mg capsule (Flomax) 0.8 mg PO HS Urinary Issue 12/05/24
telmisartan 80 mg tablet 80 mg PO DAILY Blood Pressure 12/05/24
carvedilol 6.25 mg tablet 6.25 mg PO BID #60 tabs 12/07/24
hydralazine 50 mg tablet 50 mg PO TID #90 tabs 12/07/24
calcium acetate 667 mg tablet 667 mg PO TID Supplement 02/26/25
sildenafil 25 mg tablet 25 mg PO DAILY PRN ed 02/26/25
bumetanide 1 mg tablet 1 mg PO DAILY Fluid Retention/Swelling 05/14/25
aspirin 81 mg chewable tablet 81 mg PO DAILY #1 tab 05/15/25
clopidogrel 75 mg tablet 75 mg PO DAILY #90 tabs 05/15/25
Home Medication Changes
new to plavix
Pending Results: No
--- NOTE | 2025-05-15 12:32 | PTCARENOTE ---
Pt seen by and Layla Ballard NP. Telemetry and IV device removed. Discharge instructions reviewed with pt regarding activity and driving restrictions, wound care, medications and their possible side effects, reporting cars and concerns and follow
up appt's. very good understanding verbalized. Pt escorted out via wheelchair and discharge to home.
== END 2025-05-15 12:43 | disposition home or self-care (01) | DRG 266 ==
LOC: IVU 05:47
PROVIDERS: Internal Medicine Cardiovascular Disease; Nurse Practitioner; Nurse Practitioner Acute Care; ADMITTING PHYSICIAN Student in an Organized Health Care Education/Training Program; FAMILY PHYSICIAN Nurse Practitioner Adult Health; OTHER PHYSICIAN Internal Medicine; REFERRING PHYSICIAN Internal Medicine
PROC: 5A1D70Z Performance of Urinary Filtration, Intermittent, Less than 6 Hours Per Day (ICD-10-PCS; 2025-05-14)
PROC: B24BZZ4 Ultrasonography of Heart with Aorta, Transesophageal (ICD-10-PCS; 2025-05-14)
PROC: 02UG3JZ Supplement Mitral Valve with Synthetic Substitute, Percutaneous Approach (ICD-10-PCS; 2025-05-14)
DX: I34.0 Nonrheumatic mitral (valve) insufficiency (principal); N18.6 End stage renal disease; T86.11 Kidney transplant rejection; T86.12 Kidney transplant failure; I50.32 Chronic diastolic (congestive) heart failure; I13.2 Hypertensive heart and chronic kidney disease with heart failure and with stage 5 chronic kidney disease, or end stage renal disease; E85.9 Amyloidosis, unspecified; N25.81 Secondary hyperparathyroidism of renal origin; D84.821 Immunodeficiency due to drugs; Z99.2 Dependence on renal dialysis; Y83.0 Surgical operation with transplant of whole organ as the cause of abnormal reaction of the patient, or of later complication, without mention of misadventure at the time of the procedure; N31.9 Neuromuscular dysfunction of bladder, unspecified; R33.9 Retention of urine, unspecified; J45.909 Unspecified asthma, uncomplicated; E78.2 Mixed hyperlipidemia; G62.9 Polyneuropathy, unspecified; D89.84 IgG4-related disease; D63.1 Anemia in chronic kidney disease
CPT/HCPCS: 33418; 36415; 71046; 80053; 82248; 83036; 83735; 83880; 85025; 85027; 85347; 85610; 86850; 86870; 86900; 86901; 86920; 86922; 87070; 93005; 93308; 93321; 93325; 93355; C1760; C1894; P9047

== ENCOUNTER → 2025-06-14 10:21 | Outpatient (REF) | payer OTHER, SELFPAY | LOC: RCS 10:21 | PROVIDERS: ATTENDING PHYSICIAN Internal Medicine; FAMILY PHYSICIAN Nurse Practitioner Adult Health | DX: I34.0 Nonrheumatic mitral (valve) insufficiency (principal) | CPT/HCPCS: 93306 ==

== ENCOUNTER 2025-07-04 09:30 | Outpatient (RCR) | payer OTHER, SELFPAY | END 2025-07-04 23:59 | disposition home or self-care (01) | LOC: CRHB 09:30 | PROVIDERS: ATTENDING PHYSICIAN Internal Medicine; FAMILY PHYSICIAN Nurse Practitioner Adult Health | DX: Z95.2 Presence of prosthetic heart valve (principal) | CPT/HCPCS: 93797; 93798 ==

== ENCOUNTER 2025-07-11 10:51 | Outpatient (RCR) | payer OTHER, SELFPAY | END 2025-07-11 23:59 | disposition home or self-care (01) | LOC: CRHB 10:51 | PROVIDERS: ATTENDING PHYSICIAN Internal Medicine; FAMILY PHYSICIAN Nurse Practitioner Adult Health | DX: Z95.2 Presence of prosthetic heart valve (principal) | CPT/HCPCS: 93797; 93798 ==

== ENCOUNTER 2025-09-03 22:58 | Observation (INO) | payer OTHER, SELFPAY ==
[2025-09-03 19:46] VITALS: BP 108/63; BMI 29.5
[2025-09-03 20:00] VITALS: BP 108/65
[2025-09-03 20:15] LABS: Hematocrit 38.7 % (39.0-52.0); Hemoglobin 12.6 g/dL (13.0-18.0); Mean Corp Hgb Conc. 32.6 g/dL (33.0-37.0); Mean Corpuscular Volume 98.5 fL (80.0-94.0); Platelet Count 294 10^3/uL (130-400); Red Cell Dist. Width 17.2 % (11.5-14.5)
[2025-09-03 20:16] LABS: ALT (SGPT) 13 U/L (0-50); AST (SGOT) 16 U/L (17-59); Albumin 4.0 g/dl (3.5-5.0); Alkaline Phosphatase 83 U/L (38-126); Blood Urea Nitrogen 56 mg/dl (9-20); Calcium 8.9 mg/dl (8.4-10.2); Carbon Dioxide 31 mmol/L (22-30); Chloride 90 mmol/L (98-107); Estimated Creatinine Clearance 9 ml/min; Glucose 165 mg/dl (70-99); Potassium 5.4 mmol/L (3.5-5.1); Sodium 134 mmol/L (135-145); Total Protein 8.9 g/dl (6.3-8.2); eGFR 5.21
[2025-09-03 20:25] LABS: Troponin I 0.021 ng/ml
[2025-09-03 20:41] LABS: Absolute Neutrophils -Man Diff 4.6 10^3/uL (1.4-6.5)
[2025-09-03 20:42] LABS: Platelets Checked Yes; Total Cells Counted 100
[2025-09-03 20:44] LABS: Anisocytosis 1+; Polychromasia Occasional
[2025-09-03 20:45] LABS: Macrocytosis 1+; Normal RBC Morphology No
[2025-09-03 21:00] VITALS: BP 125/70
--- NOTE | 2025-09-03 21:49 | ED.GENMED ---
History of Present Illness
General
Chief Complaint: Breathing Problem
Time Seen by Provider: 09/03/25 21:27
Nursing documentation reviewed up to this point in time: agreed with
History of Present Illness
History of Present Illness:
50-year-old male presents to the ER via EMS from dialysis. Patient was on his treatment for about 45 minutes when he had abrupt onset of severe shortness of breath. He reports that his hands turned blue. He could not catch his breath. He states
that he experienced an episode similar to this 1 year ago of unclear etiology. Since that time he had had a clip placed in his mitral valve-he was last evaluated for this in May. Patient denies any recent changes medications. Is been compliant
with receiving his routine dialysis treatments through his left upper extremity fistula. He denies any fevers or chills. He denies any feeling of chest pain or shortness of breath at time of my evaluation. He denies peripheral edema. He reports
feeling significantly better at time of my interview.
He does have significant prior medical history including hypertension, mitral regurgitation, end-stage renal disease on dialysis, G6PD
Past History
Past History
ED Past Medical History: Asthma, GERD and Other (G-6PD def )
ED Past Surgical History: Orthopedic ('Drill procedure' left UE. Left achilles surgery) and Other ( Right Kidney transplant)
Social History
Tobacco: Non-smoker
Alcohol: Occasional
Drug: None
Personal: Single
Living: alone
Review of Systems
Review of Systems
Allergies reviewed?: Yes
Phy Exam
Physical Exam
Physical Exam:
Patient is awake, alert, appears in no acute distress, sallow complexion, head is NCAT, PERRL, EOMI mucous membranes moist, conjunctiva pink, heart regular rate and rhythm with 2 out of 6 systolic ejection murmur heard best at the apex, no ectopy,
lungs are clear to auscultation without wheezes rales or rhonchi, no JVD, abdomen is soft and nontender on palpation, extremities without edema, left upper extremity fistula present with positive thrill GCS is 15
Scores
Heart Failure Risk
Heart Failure Risk Score: Not Applicable
Course
Orders/Labs/Results
Orders:
Orders
09/03/25 19:45
Electrocardiogram (*1) Urgent
Reason for Study: Shortness of Breath
EKG- Treatment ONCE
09/03/25 19:55
Complete Blood Count/With Diff Urgent
Comprehensive Metabolic Panel Urgent
Manual Differential Urgent
Troponin I Urgent
09/03/25 21:00
CR Chest - 2 Views Urgent
Comment:
Reason For Exam: dyspnea
Abnormal Lab Results
09/03/25
19:55
RBC 3.93 L 10^6/uL
(4.70-6.10)
Hgb 12.6 L g/dL
(13.0-18.0)
Hct 38.7 L %
(39.0-52.0)
MCV 98.5 H fL
(80.0-94.0)
MCH 32.1 H pg
(27.0-31.0)
MCHC 32.6 L g/dL
(33.0-37.0)
RDW 17.2 H %
(11.5-14.5)
Lymphocytes (Manual) 14 L %
(20-51)
Eosinophils (Manual) 25 H %
(0-6)
Sodium 134 L mmol/L
(135-145)
Potassium 5.4 H mmol/L
(3.5-5.1)
Chloride 90 L mmol/L
(98-107)
Carbon Dioxide 31 H mmol/L
(22-30)
BUN 56 H mg/dl
(9-20)
Creatinine 10.8 H* mg/dL
(0.7-1.3)
Glucose 165 H mg/dl
(70-99)
AST 16 L U/L
(17-59)
Total Protein 8.9 H g/dl
(6.3-8.2)
09/03/25 19:55
09/03/25 19:55
Very reassuring CBC, stable anemia. Kidney function abnormal as expected given history of end-stage renal disease with mild hyper kalemia seen
Vital Signs
Initial and Last Documented VS:
Initial Vital Signs
Pulse Resp
93 22
09/03/25 19:45 09/03/25 19:45
Last Documented Vital Signs
Temp Pulse Resp BP Pulse Ox
98.4 F 83 18 125/70 97
09/03/25 19:46 09/03/25 21:15 09/03/25 19:46 09/03/25 21:00 09/03/25 22:15
MDM/Problems Addressed
Differential Diagnosis Includes:
Differential diagnosis to consider but not limited to flash pulmonary edema, acute decompensated heart failure, acute valvular disorder, ACS along with other etiologies considered
Chronic conditions affecting care:
As per HPI
*Radiology
Radiology exam reviewed: preliminary read by ED provider (I independently viewed and interpreted two-view chest x-ray showing no acute process, no infiltrate)
*Pulse Oximetry
SaO2: 98
Oxygen Mode of Delivery: Room air
Patient hypoxic: no
*EKG
Interpreted by ED Provider?: Yes (I independently viewed and interpreted twelve-lead EKG showing normal sinus rhythm, rate 91, normal axis, normal intervals, this is a normal tracing without evidence for acute ischemia, similar to prior from
05/15/2025 with improvement in QT interval)
*[employer] Instrument [employer]ic Interpretation
Rate: normal (I independently viewed and interpreted rhythm strip showing normal sinus rhythm, no ectopy)
*Critical Care Note
Total Time (30-74mins, 75-104mins- exclusive of procedures): Not Applicable
Update Note
Update Note:
Patient appears benign at time of evaluation. I reviewed with him all test results. I discussed with him concern for abrupt change in hemodynamic status as precipitating factor for his symptoms today, in particular given presence of murmur, and
would strongly recommend inpatient further cardiac evaluation. He agrees with plan at current. I reviewed full patient presentation with hospitalist who accepts patient for admission.
ED Attending Note
-
Portions of this chart may have been created with voice recognition software.� Occasional wrong word or��sound alike� substitutions may have occurred due to the inherent limitations of voice recognition software.
Discharge Plan
Departure
Patient Disposition: Admit
Date of Disposition: 09/03/25
Time of Disposition: 21:59
Presentation/result/management discussed w/ accepting MD/DO: Hospitalist
Discharge Problem:
Acute dyspnea, End stage renal disease
Prescriptions:
No Action
prednisone 5 mg Tablet
5 mg PO DAILY
famotidine [Pepcid] 20 mg Tablet
20 mg PO DAILY
nifedipine 60 mg Tablet Extended Release 24hr
60 mg PO BID
tamsulosin [Flomax] 0.4 mg Capsule
0.8 mg PO HS
telmisartan 80 mg Tablet
80 mg PO DAILY
cinacalcet 90 mg Tablet
90 mg PO SUTUTH
Envarsus XR 1 mg Tablet Extended Release 24 Hr
6 mg PO DAILY
Patient Comments:
Patient ran out of prescription and has been unable to fill it
Repatha SureClick 140 mg/mL Pen Injector
140 mg SC MONTHLY
Patient Comments:
Patient states he has not taken this in awhile, does not remember exact date
carvedilol 6.25 mg Tablet
6.25 mg PO BID Qty: 60 0RF
hydralazine 50 mg Tablet
50 mg PO TID Qty: 90 0RF
sildenafil 25 mg Tablet
25 mg PO DAILY PRN (Reason: ed)
calcium acetate 667 mg Tablet
667 mg PO TID
bumetanide 1 mg Tablet
1 mg PO DAILY
Rx Instructions:
Non-dialysis days
clopidogrel 75 mg Tablet
75 mg PO DAILY Qty: 90 0RF
aspirin 81 mg Tablet,Chewable
81 mg PO DAILY Qty: 1 0RF
Referrals:
Tena Boyer CRNP [Family Provider, General]
Interventions
Interventions:
*Risk Screen - Suicide Last Done: 09/03/25 19:46
*General Assessment Last Done: 09/03/25 19:46
*Neglect/Abuse Screening Last Done: 09/03/25 19:46
*ED- Fall Risk Assessment Last Done: 09/03/25 19:46
*ED COVID-19 Vaccine History Last Done: 09/03/25 19:46
*ED Influenza Vaccine History Last Done: 09/03/25 19:46
ED- Cardiac Assessment Last Done: 09/03/25 19:52
ED- Pulmonary Assessment Last Done: 09/03/25 19:46
Discharge Date and Time
Print Language: JAPANESE
--- NOTE | 2025-09-03 22:02 | W.PN.UPDATE ---
Update Note
Progress Note Update
Patient seen and congestion with nurse practitioner. I concur with the history and physical and I agree with the assessment and plan.
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
mitral insufficiency status post MitraClip repair, asthma, amyloidosis who presents to the emergency department with episode of shortness of breath.
Patient reports that he gets nocturnal dialysis Saturdays for 6 hours at bedtime. Has been in usual state of health up until going on dialysis. He does report recent episodes of difficulty sleeping at night, insomnia suspicion of
MOODY, some occasional night sweats. He denies any recent episodes of chest pain, exertional dyspnea, exertional shortness of breath, lower extremity edema or acute changes in medications. He does have a remote history of asthma but states that has
been an issue for many years. He otherwise has been feeling well status post his mitral clip.
Patient report that 45 minutes into his visualization on he felt he could not catch his breath. He did have a nonproductive cough. He felt dizzy. He did not describe any palpitations. He did not report lightheadedness. He did not report any
chest pain. There was no acute measurement of pulse oximetry or blood pressure overnight available to us at that time.
Patient reports that a similar episode as a 'several weeks ago again while on dialysis but that time he was treated syncopal episode. He had a workup at an outside hospital which showed no abnormalities. He reports no recent issues with his
dialysis access and denies any history of venous thromboembolism.
In the emergency department he was afebrile, blood pressure was 108/65 with a pulse of 85 and he was satting 96% on room air. Temperature was 98.4. ECG shows a normal sinus rhythm at a rate of [address] or T wave changes. Troponin was
negative.
Chest x-ray shows no acute infiltrates. CBC was unremarkable with WBCs of 8.8, hemoglobin 12.6 and platelet 294. He is electrolytes were mostly unremarkable although he did not complete his dialysis today. BUN/creatinine consistent with
hemodialysis and end-stage renal disease.
Shortness of breath - Dialysis related presyncope. No evidence of asthma exacerbation at this time. No volume overload. Normotensive. ECG with sinus rhythm. Normal troponin. Normal cardiac auscultation.
- admit to telemetry observation
- observe on tele while undergoing dialysis in am as patient had no significant dialysis tonight.
- orthostatic vs
- trend troponin q 6 hours
- continous pulse oximetry
End-stage renal disease on hemodialysis
- nephrology consult
- HD in am
- continue calcium acetate
- continue cinacalcet
CAD
- continue DAPT, on repatha
Congestive heart failure - no evidennce of acute overload
- continue his bumex dosing
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
- weaned off antirejection meds
- planninig to return to transplant list
Hypertension - Soft BP here tonight despite no HD. Possibly etiology of event is hypotension related to started HD in setting of 4 agents.
- orthostatics
- continue carvedilol/nifedipine/telmisartan/hydralazine with hold parameters
DVT PPX - heparin sq
Code status - Full Code
--- NOTE | 2025-09-03 22:05 | HPS.HSE ---
Family Physician
-
Family Physician: Tena Boyer
Chief Complaint
-
Shortness of breath, cough
History of Present Illness
50-year-old male from dialysis infusion center where approximately 45 minutes into his dialysis he began feeling short of breath like he could not take a deep breath and started coughing. The patient also reports he noticed discoloration in both of
his hands bluish in color. He reports dialysis center did not have a pulse oximetry he denies chest pain, palpitations, fever, chills, runny nose, recent illness, abdominal pain, nausea, vomiting, diarrhea.
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
cardiac murmur, moderate to severe functional mitral regurg, status post transcatheter repair using 1 MitraClip on 05/14/2025 neuropathy, asthma
Medical History
Past Medical History
Past Medical History: Reports Other
Additional Past Medical History:
ESRD on dialysis [facility]
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
Anemia
Chronic heart failure preserved EF
Amyloidosis
DM 2
neurogenic bladder
HLD
GERD,
Moderate to severe functional mitral regurg, status post transcatheter repair using 1 MitraClip on 05/14/2025
Neuropathy
Asthma
Past Surgical History: Reports Other
Additional Past Surgical History:
Moderate to severe functional mitral regurg, status post transcatheter repair using 1 MitraClip on 05/14/2025
Left Achilles ankle repair
Fistula left upper arm failed left wrist
Right kidney transplant
DRIL procedure
Social History
Tobacco: Non-smoker
Alcohol: Occasional
Drug: None
Personal: Single (fiance)
Living: With Family (fiance)
Employment: Employed
Family History
Family History: Not pertinent
Allergies / Home Medications
Allergies reflects when Allergies were last updated in [employer].
Home Medications with original date entered in [employer]
Allergy/Medication List:
Allergies
Allergy/AdvReac Type Severity Reaction Status Date / Time
adhesive Allergy Rash Verified 02/26/25 07:08
dapsone Allergy Hives Verified 02/26/25 07:08
latex Allergy Rash Verified 02/26/25 07:08
sulfamethoxazole (From Allergy Hives Verified 02/26/25 07:08
Bactrim)
trimethoprim (From Bactrim) Allergy Hives Verified 02/26/25 07:08
Home Medications
cinacalcet 90 mg tablet 90 mg PO SUTUTH Kidney Disease 12/05/24
famotidine 20 mg tablet (Pepcid) 20 mg PO DAILY Gastrointestinal Issue 12/05/24
nifedipine 60 mg tablet,extended release 24 hr 60 mg PO BID Blood Pressure 12/05/24
telmisartan 80 mg tablet 80 mg PO DAILY Blood Pressure 12/05/24
carvedilol 6.25 mg tablet 6.25 mg PO BID #60 tabs 12/07/24
hydralazine 50 mg tablet 50 mg PO TID #90 tabs 12/07/24
calcium acetate 667 mg tablet 667 mg PO TID Supplement 02/26/25
sildenafil 25 mg tablet 25 mg PO DAILY PRN ed 02/26/25
bumetanide 1 mg tablet 1 mg PO MOWEFRSA Fluid Retention/Swelling 05/14/25
aspirin 81 mg chewable tablet 81 mg PO DAILY #1 tab 05/15/25
clopidogrel 75 mg tablet 75 mg PO DAILY #90 tabs 05/15/25
Review of Systems
-
History Source: Patient
A 12 point ROS was completed and negative except as noted: Yes
Constitutional: Denies Fever or Chills
EENT: Denies Sore Throat, Mouth Swelling or Runny Nose
Respiratory: Reports Cough and Trouble Breathing (during dialysis )
Cardiac: Denies Chest Pain, Diaphoresis, Palpitations or Syncope
Abdomen/GI: Denies Abdominal Pain, Nausea, Vomiting, Diarrhea, Constipated or Bloody Stools
: Denies Dysuria, Frequency or Flank Pain
Musculoskeletal: Denies Joint Pain or Muscle Pain
Skin: Denies Itching or Rash
Neurological: Reports Dizzy; Denies Headache or Weakness
Endocrine: Reports No Symptoms
Hematologic/Lymphatic: Reports No Symptoms
Psych: Reports Calm
Physical Exam
Vital Signs
Vital Signs
Temp Pulse Resp BP Pulse Ox
98.4 F 85 18 108/65 98
09/03/25 19:46 09/03/25 20:30 09/03/25 19:46 09/03/25 20:00 09/03/25 21:52
Physical Exam
General: Comfortable and Conversant; No Pain, Fever or Chills
HEENT: NormoCephalic, Anicteric, Moist mucous membranes, PERRLA, [address] Conjunctivae and No Ptosis
Respiratory: Clear; No Wheezes, Rales or Rhonchi
Cardiac: S1/S2 and Regular Rhythm; No Murmur, Rub, Gallop or Peripheral Edema
Breast: Deferred by me
GI: Soft, Non Tender, Non Distended, Normal Bowel Sounds and No Hepatosplenomegaly
Rectal: Deferred by Provider
Genito-urinary: Deferred by me
Musculoskeletal: No Clubbing, No Cyanosis and No Edema
Skin: Warm, Dry and IV/Catheter Site (left arm fistula intact +thrill)
Neuro: AO x 3, No Motor Deficits, Nonfocal/grossly intact, Cranial Nerves Intact and No Sensory Deficits; No Slurred Speech, Facial Droop, Tremors or Sedated
Psych: Calm
Laboratory Results
-
09/03/25 19:55
09/03/25 19:55
Laboratory Results
Total Bilirubin 0.6 mg/dl (0.2-1.3) 09/03/25 19:55
AST 16 U/L (17-59) L 09/03/25 19:55
ALT 13 U/L (0-50) 09/03/25 19:55
Alkaline Phosphatase 83 U/L (38-126) 09/03/25 19:55
Troponin I 0.021 ng/ml 09/03/25 19:55
Data Reviewed
-
Diagnostic Radiology: Report Reviewed by me
Lab Data: Labs Reviewed by me
Impression/Plan
-
Impression/plan:
Observation telemetry
#Acute dyspnea with cough dizziness during dialysis concern for possible hypotenive episode vs cardiac
#Similiar symptoms During Dialysis with dyspnea dizziness syncope due to hypotension May 2025 [facility]
#History asthma�mild exacerbated seasonally 9 years
#Chronic High Eosinophils 25%
Troponin 0.021, will trend
- Monitor orthostatic
#HTN�multidrug regimen
BP 125/70
Continue carvedilol 6.25 mg twice daily, hydralazine 50 mg p.o. 3 times daily, nifedipine 60 mg p.o. twice daily, telmisartan 80 mg daily with hold parameter
-Check orthostatic vitals
#Moderate to severe functional mitral regurg,
-status post transcatheter repair using 1 MitraClip on 05/14/2025
#ESRD on dialysis [facility]
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
Neurogenic bladder
Creat 10.8 /bun 56
-Consult nephro-for dialysis patient typically goes to [facility] in [place]
- Continue calcium acetate 667 p.o. 3 times daily, Cinnasil at 90 mg dialysis days Tuesday
- Continue aspirin 81 mg daily
- Follow CMP
#Hyperkalemia
K5.4
Follow BMP
#Chronic heart failure preserved EF
I/O, daily weight
-Continue Bumex 1 mg Tuesday
#Amyloidosis
#DM 2
Accu-Cheks with SSI
#Anemia
Hgb 12.6
HLD
Patient used to be on Repatha 140 mg subcu monthly but stopped
#GERD
- Continue Pepcid 20 mg daily
#Erectile dysfunction
Takes as needed sildenafil 25 mg has not taken weeks
DVT prophylaxis
Subcu heparin
Full code
[2025-09-04] VITALS (7 sets, daily range): BP systolic 91–142; BP diastolic 41–77; BMI 28.1; BMI 28.0
[2025-09-04] MEDS: TYLENOL 650 MG PO ×2 (01:10→20:21)
[2025-09-04] MEDS: DESYREL 50 MG PO ×2 (01:10→20:25)
--- NOTE | 2025-09-04 01:42 | PTCARENOTE ---
Patient received from ED via stretcher and ambulated to room He was oriented to room and surroundings. Plan of care reviewed. He denies dyspnea and SOB at this time. See nursing assessment for physical findings. VSS.
[2025-09-04 04:17] LABS: Troponin I 0.024 ng/ml
[2025-09-04] MEDS: PEPCID 20 MG PO (08:05)
[2025-09-04] MEDS: APRESOLINE 50 MG PO (08:05)
[2025-09-04] MEDS: COREG 6.25 MG PO ×2 (08:05→20:20)
[2025-09-04] MEDS: PHOSLO 667 MG PO ×2 (08:06→15:59)
[2025-09-04] MEDS: LOW STRENGTH ASPIRIN 81 MG PO (08:06)
[2025-09-04] MEDS: COZAAR 100 MG PO (08:06)
[2025-09-04] MEDS: PLAVIX 75 MG PO (08:06)
[2025-09-04] MEDS: PROCARDIA XL (EXTENDED RELEASE) 60 MG PO (08:06)
[2025-09-04] MEDS: HEPARIN 5000 UNITS SC ×2 (08:07→20:23)
--- NOTE | 2025-09-04 09:03 | W.PN.HOSP.TC ---
Today's Communication/Plan
-
Echocardiogram
Nephrology consult
Cardiology consult
Try to obtain records
Assessment / Plan
Assessment / Plan
Gen-AAOx3, NAD
HEENT-NC, AT, anicteric, clear oral mm
Neck-supple
CV-reg, no M, +S1/S2
Lungs-clear B/L
Abd-soft, NT, ND
Ext-no edema
Musculoskeletal-no cyanosis, clubbing
Skin-warm and dry
Neuro-grossly non-focal
Psych-calm, cooperative
Acute hypoxic respiratory failure -transient episode of shortness of breath and lightheadedness on dialysis last evening. Apparently had cyanosis of both hands at the time. Symptoms resolved relatively quickly. Do not have access to vital signs
that were done at the time. Patient had similar symptoms on dialysis 4 months ago and was evaluated in [facility] with negative workup reportedly. Will check records.
Concern for cardiac etiology given recent mitral valve repair with MitraClip, May 2025. Check echocardiogram. Consult cardiology.
Admission chest x-ray with possible mild congestion. Currently not hypoxic or requiring oxygen.
Hyperkalemia -5.4 on presentation, labs pending for today.
ESRD -on dialysis Tuesday, , Tuesday. Consult nephrology. He did not complete dialysis session yesterday. He makes minimal urine.
History of IgG4 nephropathy.
History of failed renal transplant -now off antirejection drugs. On Bumex 4 days a week.
Admits to roughly 5 pound weight gain in the past 6 months without edema.
Chronic urinary retention, neurogenic bladder. He self catheterizes every other day at home.
Severe mitral regurgitation -underwent MitraClip procedure May. Discharged on dual antiplatelet therapy for 3 months. Can discontinue further Plavix.
Chronic heart failure preserved EF -stable.
CAD
Essential hypertension -stable.
Full code
Anticipated Discharge: > 48 hours
Subjective/Interval History
-
Date of Service: September 04, 2025
Patient seen and examined. No complaints currently.
Objective Data
-
Labs:
Laboratory Results
09/04/25
06:00
WBC Pending
Hgb Pending
Hct Pending
Plt Count Pending
Sodium Pending
Potassium Pending
Chloride Pending
Carbon Dioxide Pending
BUN Pending
Creatinine Pending
Glucose Pending
Calcium Pending
Total Bilirubin Pending
AST Pending
ALT Pending
Alkaline Phosphatase Pending
Vital Signs:
Vital Signs
Temp Pulse Resp BP Pulse Ox
97.6 F 68 16 118/76 97
09/04/25 07:30 09/04/25 07:30 09/04/25 07:30 09/04/25 07:30 09/04/25 07:30
I&O
09/03/25 09/04/25 09/05/25
06:59 06:59 06:59
Intake Total 240 / 240
Balance 240 / 240
Review of Systems
-
History Source: Patient
All other systems: Reviewed and negative
[2025-09-04 09:46] LABS: COVID-19 Antigen Negative (Negative)
--- NOTE | 2025-09-04 10:21 | W.CON.NEPH ---
Consultation
-
Date/Time Consultation Requested: 09/03/250
Date/Time Consultation Performed: 09/04/25 1015
Requesting Provider: Marika Lancaster
Performing Provider: Morenita Cat
Reason for Consultation: ESRD
Medical History
-
Chief Complaint: SOB
History of Present Illness:
This is a 50-year-old gentleman who has end-stage renal disease on hemodialysis after failed renal transplant from [id number], off IS, nocturnal HD at [facility] Tuesday, and Sundays for 6hrs, IgG4 disease, hypertension on
nifedipine, hydralazine, telmisartan, carvedilol, secondary hyperparathyroidism on Sensipar. HLD, Amyloidosis, Who had had developed shortness of breath, lightheaded 45 minutes into the dialysis, he reports symptoms were similar when he had
mitral valve issue for which he underwent repair in May 2025. Dialysis was terminated and sent to the ER. Chest x-ray noted pulmonary edema. He reports decreased urine output lately. He does have h/o urinary retention for which straight
catheterizes himself. No chest pain, fever or cough. No abdominal pain or nausea or vomiting or diarrhea. He occasionally gets UF of 4 L during his dialysis, reports compliance with his fluid restriction of 40 ounces per day. No issues with HD or
AVF.
Nephrology as for dialysis needs.
Past Medical History
ESRD
Left upper extremity AV fistula, DRIL, stent
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
Hypertension
Anemia
Chronic heart failure preserved EF
Amyloidosis
DM 2
neurogenic bladder
HLD
GERD,
Moderate to severe functional mitral regurg, status post transcatheter repair using 1 MitraClip on 05/14/2025
Neuropathy
Asthma
Achilles tendon repair
Past Surgical History: Orthopedic (achillis) and Other (fistula, kidney transplant, IVIG, drill procedure)
Social History
Tobacco: Non-Smoker
Alcohol: Occasional
Personal:
Living: With Family
Employment: Other
Family History
Family History: Not Pertinent
Allergies / Home Medications
Allergy/AdvReac Type Severity Reaction Status Date / Time
adhesive Allergy Rash Verified 02/26/25 07:08
dapsone Allergy Hives Verified 02/26/25 07:08
latex Allergy Rash Verified 02/26/25 07:08
sulfamethoxazole (From Allergy Hives Verified 02/26/25 07:08
Bactrim)
trimethoprim (From Bactrim) Allergy Hives Verified 02/26/25 07:08
�Medication �Instructions �Recorded �Confirmed �Type
cinacalcet 90 mg tablet 90 mg PO SUTUTH Kidney Disease 12/05/24 09/03/25 History
famotidine 20 mg tablet (Pepcid) 20 mg PO DAILY Gastrointestinal 12/05/24 09/03/25 History
Issue
nifedipine 60 mg tablet,extended 60 mg PO BID Blood Pressure 12/05/24 09/03/25 History
release 24 hr
telmisartan 80 mg tablet 80 mg PO DAILY Blood Pressure 12/05/24 09/03/25 History
carvedilol 6.25 mg tablet 6.25 mg PO BID #60 tabs 12/07/24 09/03/25 Rx
hydralazine 50 mg tablet 50 mg PO TID #90 tabs 12/07/24 09/03/25 Rx
calcium acetate 667 mg tablet 667 mg PO TID Supplement 02/26/25 09/03/25 History
sildenafil 25 mg tablet 25 mg PO DAILY PRN ed 02/26/25 09/03/25 History
bumetanide 1 mg tablet 1 mg PO MOWEFRSA Fluid 05/14/25 09/03/25 History
Retention/Swelling
aspirin 81 mg chewable tablet 81 mg PO DAILY #1 tab 05/15/25 09/03/25 Rx
clopidogrel 75 mg tablet 75 mg PO DAILY #90 tabs 05/15/25 09/03/25 Rx
Review of Systems
-
All other systems: Negative unless noted
Physical Exam
Vital Signs
Vital Signs
Temp Pulse Resp BP Pulse Ox
97.6 F 68 16 118/76 97
09/04/25 07:30 09/04/25 07:30 09/04/25 07:30 09/04/25 07:30 09/04/25 07:30
Lab Results
eGFR 5.21 09/03/25 19:55
Abnormal Lab Results
09/03/25 09/04/25
19:55 10:30
WBC 11.8 H
RBC 3.93 L 3.45 L
Hgb 12.6 L 11.1 L
Hct 38.7 L 33.0 L
MCV 98.5 H 95.7 H
MCH 32.1 H 32.2 H
MCHC 32.6 L
RDW 17.2 H 17.2 H
Abs Neuts (Manual) 6.7 H
Lymphocytes (Manual) 14 L 7 L
Eosinophils (Manual) 25 H 33 H
Sodium 134 L 131 L
Potassium 5.4 H 5.7 H
Chloride 90 L 95 L
Carbon Dioxide 31 H
BUN 56 H 67 H
Creatinine 10.8 H* 12.2 H*
Glucose 165 H 130 H
Calcium 8.2 L
Magnesium 2.6 H
AST 16 L 16 L
Total Protein 8.9 H
Physical Exam
General: Awake, Alert, Oriented, AOx3 and No Distress
HEENT: EOMI, Facial Symmetry and Neck Supple
Respiratory: Clear, Normal Excursion and Nonlabored Respirations
Cardiac: S1/S2, Regular Rate/Rhythm and Murmur
Breast: Deferred by me
Abdomen: Soft, Nontender and Nondistended
Musculoskeletal: Edema (trace)
Skin: No Rash
Neuro: Nonfocal/Grossly Intact
Psych: Mood/afflect pleasant, Insight/judgement good and Appropriate
Vascular Access: AVF
Assessment/Plan
-
Assessment:
Acute hypoxic respiratory failure -transient episode of shortness of breath and lightheadedness on dialysis last evening
Hyperkalemia
ESRD on nocturnal dialysis Sundays, Tuesday and at [facility]
History of IgG4 nephropathy.
History of failed renal transplant -now off antirejection drugs
Chronic urinary retention, neurogenic bladder. He self catheterizes every other day at home.
Chronic heart failure preserved EF
CAD
Essential hypertension
severe functional MR status post mitral clip 05/14
Plan
a/w sob, pulm edema on CXR
HD today , UF as tolerates
Bps table on home meds
reviewed imp of diet restrction and FR
if he is here HD again tomorrow
[2025-09-04 10:47] LABS: Hematocrit 33.0 % (39.0-52.0); Hemoglobin 11.1 g/dL (13.0-18.0); Mean Corp Hgb Conc. 33.6 g/dL (33.0-37.0); Mean Corpuscular Volume 95.7 fL (80.0-94.0); Platelet Count 264 10^3/uL (130-400); Red Cell Dist. Width 17.2 % (11.5-14.5)
--- NOTE | 2025-09-04 10:47 | CON.CAR ---
Addendum entered and electronically signed by Mitchel Erazo MD 09/04/25 16:38:
I saw and evaluated the patient, and I provided the substantive portion of the medical decision making.
I reviewed and agree with the note by PEÑA Cristobal and it accurately reflects our care.
I personally performed the medical decision making of the this encounter and my assessment and plan is below:
Acute dyspnea concerning for heart failure.
Known severe HFpEF. Reviewed cath report February 2025. Right atrial pressure 16. Pulmonary capital wedge pressure of 32. PA 76/34. 50% LAD just before diagonal 2.
Mild CAD
End-stage renal disease on hemodialysis.
HTN.
Mixed hyperlipidemia.
We will check an echocardiogram to assure that the MitraClip is functioning well. Otherwise therapy is quite limited and excellent blood pressure control should be continued.
Original Note:
Consultation
Consultation Request
Date/Time Consultation Requested: 09/04/25 0903
Date/Time Consultation Performed: 09/04/25 1020
Requesting Provider: Dr. Cook
Performing Provider: Yane POMPA for Dr. Erazo
Reason for Consultation: SOB
Medical History
-
Chief Complaint: SOB
History of Present Illness:
50 y/o male with ESRD on HD (hx IgG4 disease s/p failed prior renal transplant), hypertension, hyperlipidemia, HFpEF, and moderate-severe MR who is s/p DEV/Mitraclip 05/14/25. He is here for evaluation since yesterday about 40 minutes into dialysis,
he felt significant SOB. There was some light-headedness, which passed quickly. The whole episode of SOB lasted about an hour and has since resolved. Vital signs at the time not known to me. He is currently feeling fine and was feeling fine prior.
This happened one other time several months ago prior to his MitraClip and he went to another hospital and tells me no cause was found. He is in no distress at the time of my assessment. No edema. He reports about 5 lbs weight gain, but thinks from
diet. No orthopnea.
Past Medical History
Past Medical History: CHF, HTN, Hypercholesterolemia, Renal Failure and Valvular Disease
Social History
Tobacco: Non-Smoker
Family History
Family History: Reviewed & Not Pertinent
Allergies / Home Medications
Allergy/AdvReac Type Severity Reaction Status Date / Time
adhesive Allergy Rash Verified 02/26/25 07:08
dapsone Allergy Hives Verified 02/26/25 07:08
latex Allergy Rash Verified 02/26/25 07:08
sulfamethoxazole (From Allergy Hives Verified 02/26/25 07:08
Bactrim)
trimethoprim (From Bactrim) Allergy Hives Verified 02/26/25 07:08
�Medication �Instructions �Recorded �Confirmed �Type
cinacalcet 90 mg tablet 90 mg PO SUTUTH Kidney Disease 12/05/24 09/03/25 History
famotidine 20 mg tablet (Pepcid) 20 mg PO DAILY Gastrointestinal 12/05/24 09/03/25 History
Issue
nifedipine 60 mg tablet,extended 60 mg PO BID Blood Pressure 12/05/24 09/03/25 History
release 24 hr
telmisartan 80 mg tablet 80 mg PO DAILY Blood Pressure 12/05/24 09/03/25 History
carvedilol 6.25 mg tablet 6.25 mg PO BID #60 tabs 12/07/24 09/03/25 Rx
hydralazine 50 mg tablet 50 mg PO TID #90 tabs 12/07/24 09/03/25 Rx
calcium acetate 667 mg tablet 667 mg PO TID Supplement 02/26/25 09/03/25 History
sildenafil 25 mg tablet 25 mg PO DAILY PRN ed 02/26/25 09/03/25 History
bumetanide 1 mg tablet 1 mg PO MOWEFRSA Fluid 05/14/25 09/03/25 History
Retention/Swelling
aspirin 81 mg chewable tablet 81 mg PO DAILY #1 tab 05/15/25 09/03/25 Rx
clopidogrel 75 mg tablet 75 mg PO DAILY #90 tabs 05/15/25 09/03/25 Rx
Review of Systems
-
History Source: Patient
All other systems: Negative unless noted
Constitutional: Other (LH)
Respiratory: Trouble Breathing
Physical Exam
Vital Signs
Temp Pulse Resp BP Pulse Ox
97.6 F 68 16 118/76 97
09/04/25 07:30 09/04/25 07:30 09/04/25 07:30 09/04/25 07:30 09/04/25 07:30
Lab Results
Troponin I 0.024 ng/ml 09/04/25 03:19
Physical Exam
General: Well Developed, Well Nourished and No Apparent Distress
HEENT: Normocephalic and Anicteric
Respiratory: Clear and Non Labored Respirations
Cardiac: Regular Rhythm and Murmur (II/ systolic murmur)
Musculoskeletal: No Edema
Skin: Warm and Dry
Neuro: AO x 3
Psych: Calm
Impression / Plan
-
SOB:
-resolved
-etiology unclear
-tele, EKG, and trop fine. Checking echo. CXR unremarkable overall.
-hospitalist notes reviewed- some concern for hypotension as cause in this patient on multiple BP agents and HD. Orthos ordered and pending. Can consider adjusting BP meds on HD days depending on BP's.
ESRD:
-on HD
-Nephro consulted
Mitral regurgitation s/p MitraClip 05/14/25:
-updating echo
HFpEF:
-chronic, stable
-volume management on HD
HTN:
-on multiple medicines- continue and monitor
Data Reviewed
-
EKG: Tracing Personally Visualized and interpreted (NSR)
Radiology: Report Reviewed by me (CXR: Possible mild congestion related to volume overload. Clinical correlation recommended. No evidence of pneumonia. No pleural effusion. 1.7 cm in length metallic object superimposed on the heart. (s/p mitraclip))
Medical Tests (Nuc Med, Echo etc): Report Reviewed by me (Echo 06/14/25: 1. Left ventricular systolic function is normal with an ejection fraction of 60-65%. 2. S/p XTW MitraClip placement in the A2/P2 orientation. Mean gradient 6-7 mmHg. Mild mitral
valve regurgitation. 3. Mildly elevated PASP. Mild tricuspid regurgitation. ) and Other (...PAP 38 mmhg)
Labs: Labs Reviewed by me
[2025-09-04 11:17] LABS: Troponin I 0.016 ng/ml
[2025-09-04 11:20] LABS: ALT (SGPT) 13 U/L (0-50); AST (SGOT) 16 U/L (17-59); Albumin 3.6 g/dl (3.5-5.0); Alkaline Phosphatase 71 U/L (38-126); Blood Urea Nitrogen 67 mg/dl (9-20); Calcium 8.2 mg/dl (8.4-10.2); Carbon Dioxide 26 mmol/L (22-30); Chloride 95 mmol/L (98-107); Estimated Creatinine Clearance 8 ml/min; Glucose 130 mg/dl (70-99); Magnesium 2.6 mg/dl (1.6-2.3); Potassium 5.7 mmol/L (3.5-5.1); Sodium 131 mmol/L (135-145); Total Protein 8.2 g/dl (6.3-8.2); eGFR 4.50
[2025-09-04 11:31] LABS: Absolute Neutrophils -Man Diff 6.7 10^3/uL (1.4-6.5); Anisocytosis Slight; Normal RBC Morphology No; Platelets Checked Yes; Total Cells Counted 100
[2025-09-04] MEDS: HEPARIN 500 UNITS IV ×2 (13:37→13:38)
--- NOTE | 2025-09-04 15:10 | W.PN.NEPH.HD ---
Assessment
-
pt seen during HD
vitals stable
UF as much he can tolerates
BP are soft, likely need to hold BP meds pre HD
HD again tomorrow
AVF functions fine
d/w pt
Progress Note - Hemodialysis
-
Date of Service: September 04, 2025
Duration: 45 minutes and 3 hours
Potassium Bath: 2
Calcium Bath: 2.5
Opti-Dialyzer: 160
Ultrafiltration: Other (2.5-3kg)
Blood Flow: 400
Dialysate Flow: 600
Heparin: yesx2
EPO: no
[2025-09-04] MEDS: APRESOLINE PO (15:48)
--- NOTE | 2025-09-04 16:10 | CM ---
CM reviewed chart, patient seen bedside, initial assessment completed.
Patient currently receiving HD- receives HD at [facility], , , Tuesday schedule.
Patient lives independently in a ranch style home, few steps to enter.
Patient denies DME, VN/SNF, independent with ADLS/IADLS.
PCP Tena Boyer, Pharmacy [facility].
Patient denies insecurities at home.
OBS form verbally reviewed, provided with copy, placed in chart.
Plan; home no needs
[2025-09-05 02:51] VITALS: BP 140/75
[2025-09-05 06:00] VITALS: BMI 27.9
--- NOTE | 2025-09-05 07:45 | W.PN.CD ---
Today's Communication / Plan
-
stable for discharge from CV standpoing
Impression / Plan
-
SOB:
-resolved
-etiology unclear
-tele, EKG, and trop fine. Echo unremarkable with normal function MitraClip. CXR unremarkable overall, mild pulmonary edema.
-some concern that this may have been more hypotension driven symtpoms as patient had lower BPs (80s systolic) at time of symptoms during dialysis
ESRD:
-on HD
-Nephro consulted
-dialysis ongoing today
Mitral regurgitation s/p MitraClip 05/14/25:
-normal functioning Mitraclip, otherwise unremarkable
HFpEF:
-chronic, stable
-volume management on HD
HTN:
-on multiple medicines- continue and monitor
-while seems to have labile blood pressures, is normo- to mildly hypertensive most of the time and I don't think his regimen can be reduced ideally; perhaps he needs to adjust timing of meds going forward if this becomes a recurrent issue (i.e.,
taking some of his evening medications that he usually takes prior to his evening dialysis session after the session)
Physical Exam
Vital Signs/Labs
Vital Signs
Temp Pulse Resp BP Pulse Ox
36.7 C 91 18 140/75 96
09/05/25 02:51 09/05/25 02:51 09/05/25 02:51 09/05/25 02:51 09/05/25 02:51
09/04/25 09/05/25 09/06/25
06:59 06:59 06:59
Actual Weight 96.19 kg 95.878 kg
09/04/25 10:30
Magnesium 2.6 mg/dl (1.6-2.3) H 09/04/25 10:30
LAB Results
09/03/25 09/04/25 09/04/25
19:55 03:19 10:30
Troponin I 0.021 0.024 0.016 D
Physical Exam
Constitutional: Comfortable
Cardiovascular: Rhythm & rate is regular
Respiratory: Respiratory effort normal
Neuro/Psych: AO x 3
Data Reviewed
-
Date of Service: September 05, 2025
Medical Decision Making: Reviewed Test Results
EKG: Tracing Personally Visualized and interpreted
Echo: Tracing Personally Visualized and interpreted
Labs: Labs Reviewed by me
[2025-09-05 07:50] VITALS: BP 123/61
[2025-09-05] MEDS: HEPARIN 500 UNITS IV ×2 (08:20→09:20)
--- NOTE | 2025-09-05 08:48 | W.PN.HOSP.TC ---
Today's Communication/Plan
-
Possible discharge later today.
Assessment / Plan
Assessment / Plan
Gen-AAOx3, NAD
HEENT-NC, AT, anicteric, clear oral mm
Neck-supple
CV-reg, no M, +S1/S2
Lungs-clear B/L
Abd-soft, NT, ND
Ext-no edema
Musculoskeletal-no cyanosis, clubbing
Skin-warm and dry
Neuro-grossly non-focal
Psych-calm, cooperative
Acute hypoxic respiratory failure -transient episode of shortness of breath and lightheadedness on dialysis last evening. Apparently had cyanosis of both hands at the time. Symptoms resolved relatively quickly. Do not have access to vital signs
that were done at the time. Patient had similar symptoms on dialysis 4 months ago and was evaluated in [facility] with negative workup reportedly. Suspect transient hypotension on dialysis causing symptoms.
Echocardiogram completed, EF 60%, MitraClip noted with normal gradient across mitral valve for the prosthesis. No regional wall motion abnormalities.
Hyperkalemia - due to ESRD, labs pending for today. Continue low potassium diet.
ESRD -on nocturnal dialysis Tuesday, , Tuesday. Had dialysis yesterday and currently getting dialysis now.
He makes minimal urine.
History of IgG4 nephropathy.
History of failed renal transplant -now off antirejection drugs. On Bumex 4 days a week.
Admits to roughly 5 pound weight gain in the past 6 months without edema.
Chronic urinary retention, neurogenic bladder. He self catheterizes every other day at home.
Severe mitral regurgitation -underwent MitraClip procedure May. Discharged on dual antiplatelet therapy for 3 months. Can discontinue further Plavix.
Chronic heart failure preserved EF -stable.
CAD
Essential hypertension -stable. Hold antihypertensives on the morning of dialysis.
Full code
Dispo -appears stable for discharge after dialysis today. Will discuss with nephrology, cardiology.
Anticipated Discharge: Today
Subjective/Interval History
-
Date of Service: September 05, 2025
Patient seen and examined. No complaints. Getting dialysis currently. Denies shortness of breath.
Objective Data
-
Labs:
Laboratory Results
09/05/25
08:35
Sodium Pending
Potassium Pending
Chloride Pending
Carbon Dioxide Pending
BUN Pending
Creatinine Pending
Glucose Pending
Calcium Pending
Vital Signs:
Vital Signs
Temp Pulse Resp BP Pulse Ox
98.6 F 66 18 123/61 96
09/05/25 07:50 09/05/25 07:50 09/05/25 07:50 09/05/25 07:50 09/05/25 07:50
I&O
09/04/25 09/05/25 09/06/25
06:59 06:59 06:59
Intake Total 240 / 240 840 / 840
Balance 240 / 240 840 / 840
Review of Systems
-
History Source: Patient
All other systems: Reviewed and negative
[2025-09-05] MEDS: FLEXBUMIN 25% FOR HEMODIALYSIS 12.5 GRAMS IV ×2 (09:51→10:51)
[2025-09-05] MEDS: MANNITOL 25% 12.5 GRAMS IV ×2 (09:51→10:51)
[2025-09-05 09:54] LABS: Blood Urea Nitrogen 42 mg/dl (9-20); Calcium 8.6 mg/dl (8.4-10.2); Carbon Dioxide 27 mmol/L (22-30); Chloride 97 mmol/L (98-107); Estimated Creatinine Clearance 10 ml/min; Glucose 82 mg/dl (70-99); Potassium 5.9 mmol/L (3.5-5.1); Sodium 135 mmol/L (135-145); eGFR 5.85
--- NOTE | 2025-09-05 11:12 | W.PN.NEPH.HD ---
Assessment
-
pt seen during HD
vitals stable, low BPs limiting UF espite holding am meds
EF Noted normal EF and MV looks fine
will give midodrine
moving forward he should hold BP meds pre HD and prn midodirne at unit
AVF functions fine
Progress Note - Hemodialysis
-
Date of Service: September 05, 2025
Duration: 45 minutes and 3 hours
Potassium Bath: 2
Calcium Bath: 2.5
Opti-Dialyzer: 160
Ultrafiltration: Other (1.5-2kg)
Blood Flow: 400
Dialysate Flow: 600
Heparin: yesx2
EPO: no
[2025-09-05] MEDS: PHOSLO PO (11:14)
[2025-09-05 11:30] VITALS: BP 116/59
[2025-09-05] MEDS: SENSIPAR 90 MG PO (13:08)
[2025-09-05] MEDS: PHOSLO 667 MG PO (13:08)
[2025-09-05] MEDS: LOW STRENGTH ASPIRIN 81 MG PO (13:08)
[2025-09-05] MEDS: COREG 6.25 MG PO (13:08)
[2025-09-05] MEDS: PLAVIX 75 MG PO (13:08)
--- NOTE | 2025-09-05 13:08 | W.DS.TRANS ---
DC Summary - [employer]
-
Discharge Instructions:
Discharge Diagnosis/Procedures Hypotension
Diet Other diet
Additional Diets 2 gram potassium
Activity No restrictions
Driving Restrictions As prior to admission
Bathing Restrictions None
Instructions:
Stand-Alone Forms:
Changes to Home Medications: Yes
Discharge Medications:
DC Medications w/original date entered in [employer]
cinacalcet 90 mg tablet 90 mg PO SUTUTH Kidney Disease 12/05/24
nifedipine 60 mg tablet,extended release 24 hr 60 mg PO BID Blood Pressure 12/05/24
carvedilol 6.25 mg tablet 6.25 mg PO BID #60 tabs 12/07/24
hydralazine 50 mg tablet 50 mg PO TID #90 tabs 12/07/24
calcium acetate 667 mg tablet 667 mg PO TID Supplement 02/26/25
sildenafil 25 mg tablet 25 mg PO DAILY PRN ed 02/26/25
bumetanide 1 mg tablet 1 mg PO MOWEFRSA Fluid Retention/Swelling 05/14/25
aspirin 81 mg chewable tablet 81 mg PO DAILY #1 tab 05/15/25
clopidogrel 75 mg tablet 75 mg PO DAILY #90 tabs 05/15/25
famotidine 20 mg tablet 20 mg PO Q48H #0 tabs 09/05/25
Home Medication Changes
Hold telmisartan
Pending Results: No
[2025-09-05] MEDS: HEPARIN 5000 UNITS SC (13:09)
[2025-09-05] MEDS: COZAAR PO (13:13)
--- NOTE | 2025-09-05 13:39 | CM ---
CM reviewed chart, patient seen bedside.
Patient for d.c today, confirms transport home.
Patient denies needs from CM.
Plan; home no needs.
Juanjose Kaye
[2025-09-05 15:21] VITALS: BP 130/78
== END 2025-09-05 16:59 | disposition home or self-care (01) ==
LOC: 4 WEST ACU 22:58
PROVIDERS: Clinical Nurse Specialist Family Health; ADMITTING PHYSICIAN Internal Medicine; ATTENDING PHYSICIAN Hospitalist; CONSULT PHYSICIAN Internal Medicine Cardiovascular Disease; EMERGENCY PHYSICIAN Emergency Medicine; FAMILY PHYSICIAN Nurse Practitioner Adult Health; OTHER PHYSICIAN Internal Medicine
DX: I95.89 Other hypotension (principal); J96.01 Acute respiratory failure with hypoxia; I13.2 Hypertensive heart and chronic kidney disease with heart failure and with stage 5 chronic kidney disease, or end stage renal disease; N18.6 End stage renal disease; D75.A Glucose-6-phosphate dehydrogenase (G6PD) deficiency without anemia; I34.0 Nonrheumatic mitral (valve) insufficiency; K21.9 Gastro-esophageal reflux disease without esophagitis; I50.32 Chronic diastolic (congestive) heart failure; I25.10 Atherosclerotic heart disease of native coronary artery without angina pectoris; D63.1 Anemia in chronic kidney disease; R23.0 Cyanosis; E87.5 Hyperkalemia; N25.81 Secondary hyperparathyroidism of renal origin; E11.40 Type 2 diabetes mellitus with diabetic neuropathy, unspecified; N52.9 Male erectile dysfunction, unspecified; E85.9 Amyloidosis, unspecified; E11.22 Type 2 diabetes mellitus with diabetic chronic kidney disease; N31.9 Neuromuscular dysfunction of bladder, unspecified; E78.00 Pure hypercholesterolemia, unspecified; R42 Dizziness and giddiness; J45.909 Unspecified asthma, uncomplicated; T86.11 Kidney transplant rejection; T86.12 Kidney transplant failure; Y83.0 Surgical operation with transplant of whole organ as the cause of abnormal reaction of the patient, or of later complication, without mention of misadventure at the time of the procedure; Z99.2 Dependence on renal dialysis; Z79.52 Long term (current) use of systemic steroids; Z79.82 Long term (current) use of aspirin; Z79.02 Long term (current) use of antithrombotics/antiplatelets; Z88.1 Allergy status to other antibiotic agents; Z91.040 Latex allergy status; Z88.2 Allergy status to sulfonamides; Z88.8 Allergy status to other drugs, medicaments and biological substances; Z91.048 Other nonmedicinal substance allergy status; Z79.899 Other long term (current) drug therapy; Z95.818 Presence of other cardiac implants and grafts; Z11.52 Encounter for screening for COVID-19; Z60.2 Problems related to living alone
CPT/HCPCS: 90935 ×2; 71046; 80048; 80053; 83735; 84484; 85025; 87070; 87811; 93005; 93306; 99285; G0378; P9047